=== PATIENT | male | born 1970 | race Two or more races ===

== ENCOUNTER 2020-04-16 13:50 | Outpatient (REF) | payer OTHER, SELFPAY ==
[2020-04-16 14:41] LABS: MANUAL DIFF FLAG NO
[2020-04-16 14:49] LABS: Basophils Percent Auto 0.7 % (0-2); Eosinophils Absolute Auto 0.2 X10*3/uL (0.0-0.4); Eosinophils Percent Auto 5.3 % (0-4); Hematocrit 40.2 % (42-52); Hemoglobin 13.3 g/dl (14.0-18.0); Imm Gran Abs Auto 0.01 X10*3/uL (0.00-0.03); Imm Gran Pct Auto 0.2 % (0.0-0.4); Lymphocytes Absolute Auto 1.6 X10*3/uL (1.2-4.9); Lymphocytes Percent Auto 35.6 % (20-40); Mean Corpuscular HGB Conc 33.1 g/dl (31.0-36.0); Mean Corpuscular Hemoglobin 26.9 pg (27.0-33.0); Mean Corpuscular Volume 81.4 fL (80-98); Mean Platelet Volume 10.2 fL (9.4-12.4); Monocytes Absolute Auto 0.5 X10*3/uL (0.1-1.2); Neutrophils Absolute Auto 2.2 X10*3/uL (2.0-8.3); Neutrophils Percent Auto 47.2 % (45-73); Platelet Count 251 X10*3/uL (160-400); Red Blood Count 4.94 X10*6/uL (4.60-5.80); Red Cell Distribution Width 12.9 % (11.0-16.0); White Blood Count 4.6 X10*3/uL (4.8-10.8)
[2020-04-16 15:12] LABS: Alanine Aminotransferase 22 U/L (0-40); Albumin Level 4.5 g/dL (3.5-5.0); Alkaline Phosphatase 72 U/L (39-117); Anion Gap 16 (12-20); Aspartate Amino Transferase 22 U/L (5-37); Bilirubin Total 0.7 mg/dL (0.0-1.0); Blood Urea Nitrogen 17 mg/dL (9-16); Calcium 9.2 mg/dL (8.4-10.2); Carbon Dioxide 24 mmol/L (22-29); Chloride 104 mmol/L (96-108); Cholesterol 164 mg/dL; Estimated Glomerular Filt Rate > 60; Glucose Fasting 77 mg/dL (60-99); HDL Cholesterol 32 mg/dL; LDL Cholesterol Calculated 116 mg/dl; Potassium 4.6 mmol/l (3.3-5.1); Sodium 139 mmol/L (135-145); Total Protein 7.3 g/dL (6.5-8.0); Triglycerides 83 mg/dL
[2020-04-16 15:32] LABS: TSH reflex Free T4 2.18 mIU/mL (0.32-4.0)
== END 2020-04-16 13:51 | disposition home or self-care (01) ==
LOC: HO.LAB 13:50
PROVIDERS: PCP Internal Medicine; Visit Provider Internal Medicine
DX: E78.00 Pure hypercholesterolemia, unspecified (principal); I10 Essential (primary) hypertension; E66.9 Obesity, unspecified
CPT/HCPCS: 36415; 80053; 80061; 84443; 85025

== ENCOUNTER → 2021-07-10 12:50 | Outpatient (REF) | payer OTHER, SELFPAY ==
--- NOTE | 2021-07-10 12:54 | CA_ITS ---
Transthoracic Echocardiogram Patient (Last, First, Middle): Fly Sanchez, Gender: Male Date of : 1970 Age: 51 Procedure Date: 07/10/2021 Procedure Type: Transthoracic Echocardiogram Location: OP Height: 170.18 cm Weight: 94.8 kg BSA: 2.06 m2 Heart Rate: bpm BP: 130 / 80 mmHg Window Repairer: YR/TO Referring MD: Mumtaz Reyes MD Slurry Control Tender: Tenzin Stephens MD Symptoms: R01.1 - Cardiac murmur, unspecified Study Quality: Fair ECG Rhythm: Sinus Conclusions: - Essentially normal study Findings Left Ventricle Normal left ventricular size, thickness, and systolic function. The visually estimated ejection fraction is between 55-60%. Spectral Doppler is indicative of a normal filling pattern. Right Ventricle Normal right ventricular cavity size and systolic function. Atria Both atria are normal in size. Interatrial shunt cannot be excluded. Aortic Valve Normal aortic valve structure and function. There is no aortic valve stenosis. There is no aortic valve regurgitation. Mitral Valve Normal mitral valve structure and function. There is trace mitral valve regurgitation. There is no mitral valve stenosis. Pulmonic Valve The pulmonic valve was not well visualized. Tricuspid Valve Likely normal tricuspid valve structure and function. There is trace tricuspid valve regurgitation. The right ventricular systolic pressure is normal. The right ventricular systolic pressure is 24 mmHg. There is no evidence of pulmonary hypertension. Great Vessels All visible segments of the aorta are normal in size. The pulmonary artery was not well visualized. Venous The inferior vena cava is normal in size and collapses greater than 50% with inspiration. Pericardium/Pleural There is no evidence of pericardial effusion. Measurements 2D Linear Measurements IVSd: 0.98 0.6-0.9/0.6-1.0 cm LVIDd: 4.89 3.9-5.3/4.2-5.9 cm LVIDd Index: 2.37 2.4-3.2/2.2-3.1 cm/m2 LVIDs: 3.27 2.0-3.6 cm LVPWd: 0.94 0.7-1.1 cm LA Diam: 3.90 2.7-3.8/3.0-4.0 cm LAIDs Index: 1.89 1.5-2.3 cm/m2 LV Mass: 205.98 67-162/88-224 g LV Mass Index: 99.99 43-95/49-115 g/m2 LVOT Diam: 2.20 3.0+(-)1.3 cm 2D Systolic Function EF 4C: 57.50 >55% EF 2C: 62.40 >55% EF BiP: 59.10 >55% Mitral Valve MV Pk E: 0.64 MV PK A: 0.53 MV Decel Time: 159.00 E/A: 1.20 E'Lateral: 8.05 E'Medial: 6.53 E/E' Med: 9.80 E/E' Lat: 7.90 PHT: 47.00 MVA PHT: 4.68 Decel Hamilton: 4.02 Aortic Valve AoV Pk Fabricio: 1.52 AoV Mn Fabricio: 1.02 AoV VTI: 0.30 AoV Pk Grad: 9.00 Aov Mn Grad: 5.00 ARMANDO Cont.VTI: 2.59 LVOT LVOT Pk Fabricio: 0.95 LVOT Mn Fabricio: 0.65 LVOT VTI: 0.20 LVOT Pk Grad: 4.00 LVOT Mn Grad: 2.00 LVOT Diam: 2.20 LVOT Area: 3.80 Diastolic Function MV Pk E: 0.64 MV Pk A: 0.53 E/A: 1.20 E'Medial: 6.53 E/E' Med: 9.80 E' Laterial: 8.05 E/E' Lat: 7.90 Right Ventricle TAPSE (mm): 26.70 TVS' Fabricio: 12.40 Tricuspid Valve TR Pk Fabricio: 2.30 TR Pk Grad: 21.00 RA Press: 3.00 RVSP: 24.00 Great Vessels Aorta Sinus of Valsalva: 3.32 2.0-3.[address] [place]: 2.35 1.7-3.4 cm Ao Asc: 3.60 2.1-3.4 cm Updated in Other Vendor System with Status of Final Tenzin Stephens MD electronically signed on 07/10/2021 3:43:34 PM with status of Final
[2021-07-10 13:06] LABS: MANUAL DIFF FLAG NO
[2021-07-10 13:24] LABS: Basophils Absolute Auto 0.1 X10*3/uL (0.0-0.2); Basophils Percent Auto 1.1 % (0-2); Eosinophils Absolute Auto 0.8 X10*3/uL (0.0-0.4); Eosinophils Percent Auto 13.8 % (0-4); Hematocrit 43.2 % (42.0-52.0); Imm Gran Abs Auto 0.01 X10*3/uL (0.00-0.03); Imm Gran Pct Auto 0.2 % (0.0-0.4); Lymphocytes Absolute Auto 1.6 X10*3/uL (1.2-4.9); Lymphocytes Percent Auto 27.7 % (20-40); Mean Corpuscular HGB Conc 32.4 g/dl (31.0-36.0); Mean Corpuscular Volume 83.4 fL (80.0-98.0); Mean Platelet Volume 9.4 fL (9.4-12.4); Monocytes Absolute Auto 0.5 X10*3/uL (0.1-1.2); Neutrophils Absolute Auto 2.7 x10*3/uL (2.0-8.3); Neutrophils Percent Auto 48.2 % (45-73); Platelet Count 274 X10*3/uL (160-400); Red Blood Count 5.18 X10*6/uL (4.60-5.80); Red Cell Distribution Width 13.7 % (11.0-16.0); White Blood Count 5.7 X10*3/uL (4.8-10.8)
[2021-07-10 13:53] LABS: Appearance Urine CLEAR; Color Urine YELLOW; Glucose Urine UA NEG (NEG); Leukocyte Esterase Urine NEG (NEG); Nitrite Urine NEG (NEG); Specific Gravity - Urine >= 1.030 (1.005-1.025); Urine Blood NEG (NEG); Urine Ketones NEG (NEG); Urine Protein TRACE MG/DL (NEG-TRACE)
[2021-07-10 14:04] LABS: Prostate Specific Antigen 2.58 ng/mL (<0.05-4.0); TSH reflex Free T4 1.91 uIU/mL (0.32-4.0); Vitamin D 25-OH Total 33.9 ng/mL (>30)
[2021-07-10 14:10] LABS: Alanine Aminotransferase 17 U/L (0-40); Albumin Level 4.8 g/dL (3.5-5.0); Alkaline Phosphatase 71 U/L (39-117); Anion Gap 15 (12-20); Aspartate Amino Transferase 19 U/L (5-37); Bilirubin Total 0.9 mg/dL (0.0-1.0); Blood Urea Nitrogen 14 mg/dL (9-16); Calcium 10.3 mg/dL (8.4-10.2); Carbon Dioxide 26 mmol/L (22-29); Chloride 105 mmol/L (96-108); Cholesterol 237 mg/dL; Estimated Glomerular Filt Rate > 60; Glucose Fasting 93 mg/dL (60-99); HDL Cholesterol 49 mg/dL; LDL Cholesterol Calculated 177 mg/dl; Potassium 4.8 mmol/L (3.3-5.1); Sodium 141 mmol/L (135-145); Triglycerides 58 mg/dL
[2021-07-10 14:26] LABS: Uric Acid 8.4 mg/dL (3.4-7.0)
== END ==
LOC: HO.CARD 12:50
PROVIDERS: Visit Provider Internal Medicine
DX: Z00.00 Encounter for general adult medical examination without abnormal findings (principal); R01.1 Cardiac murmur, unspecified; N40.0 Benign prostatic hyperplasia without lower urinary tract symptoms; E78.00 Pure hypercholesterolemia, unspecified; M10.9 Gout, unspecified; E55.9 Vitamin D deficiency, unspecified; R30.0 Dysuria
CPT/HCPCS: 36415; 80053; 80061; 81003; 82306; 84153; 84443; 84550; 85025; 93306

== ENCOUNTER 2022-06-15 10:55 | Outpatient (REF) | payer OTHER, SELFPAY ==
[2022-06-15 11:23] LABS: MANUAL DIFF FLAG NO
[2022-06-15 12:11] LABS: Basophils Percent Auto 0.6 % (0-2); Eosinophils Absolute Auto 0.2 X10*3/uL (0.0-0.4); Eosinophils Percent Auto 2.5 % (0-4); Hematocrit 41.1 % (42.0-52.0); Hemoglobin 13.2 g/dl (14.0-18.0); Imm Gran Abs Auto 0.01 X10*3/uL (0.00-0.03); Imm Gran Pct Auto 0.1 % (0.0-0.4); Lymphocytes Absolute Auto 1.3 X10*3/uL (1.2-4.9); Lymphocytes Percent Auto 19.5 % (20-40); Mean Corpuscular HGB Conc 32.1 g/dl (31.0-36.0); Mean Corpuscular Hemoglobin 26.8 pg (27.0-33.0); Mean Corpuscular Volume 83.4 fL (80.0-98.0); Mean Platelet Volume 9.1 fL (9.4-12.4); Monocytes Absolute Auto 0.5 X10*3/uL (0.1-1.2); Monocytes Percent Auto 7.2 % (2-11); Neutrophils Absolute Auto 4.7 x10*3/uL (2.0-8.3); Neutrophils Percent Auto 70.1 % (45-73); Platelet Count 313 X10*3/uL (160-400); Red Blood Count 4.93 X10*6/uL (4.60-5.80); Red Cell Distribution Width 13.2 % (11.0-16.0); White Blood Count 6.8 X10*3/uL (4.8-10.8)
[2022-06-15 12:23] LABS: Appearance Urine Clear; Color Urine Yellow; Glucose Urine UA Negative (Negative); Leukocyte Esterase Urine Negative (Negative); Nitrite Urine Negative (Negative); PH 5.5 (5.0-9.0); Urine Blood Negative (Negative); Urine Ketones Negative (Negative); Urine Protein Negative (Neg-Trace)
[2022-06-15 13:08] LABS: Alanine Aminotransferase 16 U/L (0-40); Albumin Level 4.6 g/dL (3.5-5.0); Alkaline Phosphatase 83 U/L (39-117); Anion Gap 13 (12-20); Aspartate Amino Transferase 18 U/L (5-37); Bilirubin Total 0.5 mg/dL (0.0-1.0); Blood Urea Nitrogen 17 mg/dL (9-16); Calcium 9.9 mg/dL (8.4-10.2); Carbon Dioxide 29 mmol/L (22-29); Chloride 105 mmol/L (96-108); Cholesterol 186 mg/dL; Estimated Glomerular Filt Rate > 60; Glucose Fasting 84 mg/dL (60-99); HDL Cholesterol 38 mg/dL; LDL Cholesterol Calculated 138 mg/dl; Potassium 5.5 mmol/L (3.3-5.1); Sodium 141 mmol/L (135-145); Total Protein 7.6 g/dL (6.5-8.0); Triglycerides 52 mg/dL
[2022-06-15 13:13] LABS: TSH reflex Free T4 1.43 uIU/mL (0.32-4.0); Vitamin D 25-OH Total 40.9 ng/mL (>30)
== END 2022-06-15 10:56 | disposition home or self-care (01) ==
LOC: HO.LAB 10:55
PROVIDERS: PCP Internal Medicine; Visit Provider Internal Medicine
DX: E78.00 Pure hypercholesterolemia, unspecified (principal); R30.0 Dysuria; E55.9 Vitamin D deficiency, unspecified; I10 Essential (primary) hypertension
CPT/HCPCS: 36415; 80053; 80061; 81003; 82306; 84443; 85025

== ENCOUNTER 2022-11-27 14:08 | Outpatient (AMB) | payer OTHER, SELFPAY ==
[2022-11-27 14:10] VITALS: BP 114/72; PULSE 64; O2SAT 98; BMI 30.4
--- NOTE | 2022-11-27 14:10 | A.OFFPC_ITS ---
Vital Signs 11/27/22 14:10 Height 5 ft 7 in Weight 194 lb 6 oz BMI 30.4 BP 114/72 Blood Pressure Location Lt brachial Position Sitting Pulse 64 Pulse Source Pulse Oximeter Pulse Oximetry (%) 98 Oxygen Delivery Method Room Air Intake Visit Reasons: hyperlipidemia, gout, anxiety Activities Specialist Required: No Accompanied by: Self / Same As Patient Allergies No Known Allergies Allergy (Verified 11/27/22 14:44) Medication List - Last Reconciled 11/27/22 by Mumtaz Reyes MD allopurinol 100 mg PO DAILY colchicine (gout) 0.6 mg PO BID PRN 30 days hydroxyzine HCl 50 mg PO BEDTIME ibuprofen 600 mg PO TID PRN 30 days indomethacin 25 mg PO TID PRN lorazepam 1 mg PO TID PRN 30 days pravastatin 40 mg PO BEDTIME 30 days tramadol 50 mg PO TID PRN 30 days Tobacco use date assessed: 11/27/22 Dental Screening Dental Screen Date: 11/27/22 Did you have a dental visit in the last 12 months?: No Did you have a dental problem in the last 6 months where you did not have access to dental care?: No Was dental information given to patient?: No HPI hyperlipidemia, gout, anxiety HPI Details Patient comes in today for his follow up visit States that he feels okay He denies any headaches or dizziness Denies any chest pains, no SOB No nausea/vomiting, no abdominal pain No change in bowel habits noted States that his low back pain remains adequately controlled on his current Rx Needs his Allopurinol Rx refilled Was not able to get his follow up labs done yet - states that he will try to get them done [facility] Medical History Anxiety Essential hypertension Gout Insomnia Low back pain Obesity (BMI 30-39.9) Pure hypercholesterolemia Surgical History Hx laparoscopic cholecystectomy (~11/06/18) Hx of umbilical hernia repair (~11/06/18) Family History Father Hypertension Cardiovascular disease Mother Cancer Sister Asthma Social History Housing: House Alcohol intake: current Alcohol intake frequency: holidays/special occasions only Patient Tobacco Use Status: Never used Tobacco e-Cigarette/Vaping Use: Never Used Second Hand Smoke Exposure: Yes service: No Current occupational status: disabled Cognitive needs: No Hearing needs: No Vision needs: No Questionnaire PHQ-9 Over the last 2 weeks, how often have you been bothered by any of the following problems? 1. Little interest or pleasure in doing things: not at all 2. Feeling down, depressed, or hopeless: not at all 3. Trouble falling or staying asleep, or sleeping too much: not at all 4. Feeling tired or having little energy: not at all 5. Poor appetite or overeating: not at all 6. Feeling bad about yourself - or that you are a failure or have let yourself or your family down: not at all 7. Trouble concentrating on things, such as reading the newspaper or watching television: not at all 8. Moving or speaking so slowly that other people could have noticed. Or the opposite - being so fidgety or restless that you have been moving around a lot more than usual: not at all 9. Thoughts that you would be better off or of hurting yourself in some way: not at all Total score: 0 Depression Screening Interpretation: Negative [id number] - PHQ-9 Billing: Yes Source: Developed by Drs. Maikel Xie, Nurys Benavides, Claudy Sawyer and colleagues, with an educational sawyer from [employer] Thrive Questionnaire Date Thrive assessed: 11/27/22 I am a: Patient What is your living situation today?: I have a steady place to live Within the past 12 months, did the food you bought not last and you didn't have the money to get more?: Never true Within the past 12 months, did you worry whether your food would run out before you got money to buy more?: Never true Do you have trouble paying for medicines?: No Do you have trouble getting transportation to medical appointments?: No Do you have trouble paying your heating and electricity bill?: No Do you have trouble taking care of your child, family member or friend?: No Do you have trouble with day-to-day activities such as bathing, preparing meals, shopping, managing finances, etc.?: No Are you currently unemployed and looking for a job?: No Are you interested in more education?: No Please select the resources that you would like help with: None Currently or been in a relationship where the following occur: no concerns reported AUDIT C Alcohol Use Questionnaire (AUDIT-C) 1. How often do you have a drink containing alcohol?: Monthly or less 2. How many drinks containing alcohol do you have on a typical day when you are drinking?: 1 or 2 3. How often do you have six or more drinks on one occasion?: Never Total Score: 1 Score Reviewed/Action Taken: Yes CIERA-7 AMB Questionnaire CIERA-7 Date CIERA - 7 assessed: 11/27/22 Feeling nervous, anxious, or on edge: 0 = Not at all Not being able to stop or control worryin = Not at all Worrying too much about different things: 0 = Not at all Trouble relaxin = Not at all Being so restless that it is hard to sit still: 0 = Not at all Becoming easily annoyed or irritable: 0 = Not at all Feeling afraid as if something awful might happen: 0 = Not at all Total CIERA-7 score (0-4 normal; 5-9 mild; 10-14 moderate; 15-21 severe): 0 Source: Developed by Drs. Maikel Xie, Nurys Benavides, Claudy Sawyer and colleagues, with an educational sawyer from [employer] Review of Systems Const Denies chills, Denies fatigue, Denies fever(s) and Denies headache(s) ENT Denies dysphagia, Denies dizziness, Denies otalgia, Denies headache(s), Reports neck pain, Denies odynophagia and Denies sore throat Card Denies chest pain, Denies palpitations and Denies dyspnea Resp Denies cough, Denies dyspnea and Denies wheezing GI Denies abdominal pain, Denies constipation, Denies dysphagia, Denies heartburn, Denies diarrhea, Denies nausea, Denies odynophagia and Denies vomiting Musc Reports back pain (recurrent), Denies arthralgias and Reports neck pain Neuro Denies dizziness and Denies headache(s) Psych Reports anxiety Endo Denies fatigue and Denies palpitations Aller/Immun Denies wheezing Physical exam (Primary Care) Vital Signs: Last Vital Signs Pulse 64 11/27/22 14:10 BP 114/72 11/27/22 14:10 Pulse Ox 98 11/27/22 14:10 Oxygen Delivery Method Room Air 11/27/22 14:10 BMI result Body Mass Index 30.4 Tobacco/Smoking Status: Tobacco use Status Tobacco use date assessed 11/27/22 11/27/22 14:17 Patient Tobacco Use Status Never used Tobacco 11/27/22 14:17 e-Cigarette/Vaping Use Never Used 11/27/22 14:17 PHQ-9: PHQ-9 Score PHQ-9: Total score 0 11/27/22 14:49 Depression Screening Interpretation: Negative Thrive Assessment: Date of Thrive Assessment Date Thrive assessed 11/27/22 11/27/22 14:17 Currently or been in a relationship where the following occur: no concerns reported Const General: no acute distress and alert HENMT Ears: TM's normal bilaterally and EAC's normal Throat: Yes posterior oropharynx normal and Yes tonsils normal Neck Neck: Yes no lymphadenopathy and Yes supple Thyroid: Thyroid normal and no masses Resp Auscultation: clear to auscultation bilaterally, no rales and no wheezes Cardio Rate: regular rate Rhythm: regular rhythm Heart sounds: no murmurs GI Palpation (GI): Soft to palpation, nontender and no guarding Auscultation: normal bowel sounds Back/Spine/Pelvis Cervical Spine: Cervical spine tenderness Thoracic/Lumbar Spine: lumbar spinal tenderness Extrem General: Yes no clubbing, cyanosis or edema Assessment and Plan Assessment & Plan (1) Pure hypercholesterolemia: Code(s): E78.00 - Pure hypercholesterolemia, unspecified Plan: Was not able to get his follow up labs done prior to his visit today As we have just switched him over from Atorvastatin to Pravastatin a few months ago due to myalgias on Atorvastatin, have advised patient that he should try to get his follow up labs done [facility] Reinforced low cholesterol diet Continue Pravastatin 40 mg QD for now - appears to be tolerating Pravastatin with no issues Will recheck his fasting lipids and labs again in 4 months for follow up (2) Essential hypertension: Code(s): I10 - Essential (primary) hypertension Plan: Reinforced low-sodium diet -? goal is systolic BP of at least 130 mm or less He has not yet required any antihypertensives for his blood pressure so far (3) Gout: Code(s): M10.9 - Gout, unspecified Qualifiers: Chronicity: unspecified Gout etiology: idiopathic Gout site: unspecified site Qualified Code(s): M10.00 - Idiopathic gout, unspecified site Plan: Reinforced low purine diet; serum uric acid was elevated at 8.4 on his labs back in June 2021 Gout was controlled adequately with diet modification alone until he had a gout flare up a few months ago (after no flare ups in over a year) We tried starting him on Colchicine 0.6 mg BID at his last appt but insurance would not cover the Rx and he was instead started on Allopurinol 100 mg QD Will recheck his serum uric acid level in 4 months for follow up (4) Low back pain: Code(s): M54.5 - Low back pain Qualifiers: Back pain laterality: midline Chronicity: unspecified Sciatica presence: without sciatica Qualified Code(s): M54.5 - Low back pain Plan: Reinforced activity and weight lifting restrictions Continue Tramadol 50 mg 2 to 3 times a day as needed Lumbar spine and cervical spine x-rays done a couple of years ago came back no rmal Will consider referral to pain management for further evaluation if his low back pain and neck pain continue to persist or worsen (5) Benign prostatic hyperplasia (BPH) with urinary urgency: Code(s): N40.1 - Benign prostatic hyperplasia with lower urinary tract symptoms; R39.15 - Urgency of urination Plan: PSA back in June 2021 was normal Follow up with urology as scheduled (6) Insomnia: Code(s): G47.00 - Insomnia, unspecified Qualifiers: Insomnia type: unspecified Qualified Code(s): G47.00 - Insomnia, unspecified Plan: Sleep hygiene reinforced Continue Hydroxyzine 50 mg once a day at bedtime as needed (7) Anxiety: Code(s): F41.9 - Anxiety disorder, unspecified Plan: Continue Lorazepam 1 mg to 3 times a day as needed (8) Obesity (BMI 30-39.9): Code(s): E66.9 - Obesity, unspecified Plan: Reinforced diet/exercise as tolerated/lose weight Plan Follow up in 4 months Orders: Orders Lipid Panel 4 Months E78.00 - Pure hypercholesterolemia, unspecified Comprehensive [place]. Panel Fast 4 Months E78.00 - Pure hypercholesterolemia, unspecified TSH reflex Free T4 4 Months E78.00 - Pure hypercholesterolemia, unspecified Uric Acid 4 Months M10.9 - Gout, unspecified Vitamin D 25-OH Total 4 Months E55.9 - Vitamin D deficiency, unspecified Complete Blood Count Auto Diff 4 Months I10 - Essential (primary) hypertension UA CC w/rflx Micro + Cult 4 Months R30.0 - Dysuria Medications: Refilled allopurinol 100 mg PO DAILY 30 tabs 2RF Review Patient declined Colonoscopy: 07/27/22 Patient declined Colon Cancer Screen Lab: 07/27/22 Coding Level of Care Code Est Pt Level 4 (78284) Diagnoses Pure hypercholesterolemia E78.00 Essential hypertension I10 Gout M10.00 Chronicity: unspecified Gout etiology: idiopathic Gout site: unspecified site Low back pain M54.5 Back pain laterality: midline Chronicity: unspecified Sciatica presence: without sciatica Benign prostatic hyperplasia (BPH) with urinary urgency N40.1; R39.15 Insomnia G47.00 Insomnia type: unspecified Anxiety F41.9 Obesity (BMI 30-39.9) E66.9
== END 2022-11-27 14:51 | disposition home or self-care (01) ==
PROVIDERS: PCP Internal Medicine; Visit Provider Internal Medicine
DX: I10 Essential (primary) hypertension (principal); F41.9 Anxiety disorder, unspecified; E78.00 Pure hypercholesterolemia, unspecified; M10.00 Idiopathic gout, unspecified site; M54.50 Low back pain, unspecified; N40.1 Benign prostatic hyperplasia with lower urinary tract symptoms; R39.15 Urgency of urination; G47.00 Insomnia, unspecified; E66.9 Obesity, unspecified
CPT/HCPCS: 99214

== ENCOUNTER 2023-06-28 12:43 | Outpatient (AMB) | payer OTHER, SELFPAY ==
--- NOTE | 2023-06-28 12:50 | MHC.PC.OV ---
Vital Signs 06/28/23 12:53 Height 5 ft 7 in Weight 212 lb 4 oz BMI 33.2 BP 100/60 Blood Pressure Location Lt brachial Position Sitting Pulse 54 Pulse Source Pulse Oximeter Pulse Oximetry (%) 97 Oxygen Delivery Method Room Air Intake Visit Reasons: OVERDUE 4 MON FUP Intake Note: Patient is here to follow up on BPH, Tourette's syndrome, HTN, Hypercholesterolemia. Engine Setter Required: No Field Return Repairer: Not Required per policy Accompanied by: Self / Same As Patient Allergies No Known Allergies Allergy (Verified 06/28/23 14:14) Medication List - Last Reconciled 06/28/23 by Mumtaz Reyes MD allopurinol 100 mg PO DAILY colchicine 0.6 mg PO BID PRN 30 days hydroxyzine HCl 50 mg PO BEDTIME ibuprofen 600 mg PO TID PRN 30 days indomethacin 25 mg PO TID PRN lorazepam 1 mg PO TID PRN 30 days pravastatin 40 mg PO BEDTIME tramadol 50 mg PO TID PRN 30 days Tobacco use date assessed: 06/28/23 Dental Screening Dental Screen Date: 06/28/23 Did you have a dental visit in the last 12 months?: No Did you have a dental problem in the last 6 months where you did not have access to dental care?: No Was dental information given to patient?: No HPI OVERDUE 4 MON FUP HPI Details Patient comes in today for his follow up visit - was last seen in November 2022 Patient states that he has been working out regularly and some of his weight gain since his last visit may be due to muscle mass States that he currently feels okay and that his chronic low back pain remains adequately controlled on his current Rx Adds that his anxiety is also controlled on his current Rx He denies any headaches or dizziness Denies any chest pains, no SOB No nausea/vomiting, no abdominal pain No change in bowel habits noted Needs his Ibuprofen Rx refilled He has not yet been able to get his previously ordered follow up labs done [facility] Medical History Obesity (BMI 30-39.9) Anxiety Insomnia Gout Low back pain Essential hypertension Pure hypercholesterolemia Surgical History Hx of umbilical hernia repair (~11/06/18) Hx laparoscopic cholecystectomy (~11/06/18) Family History Father Hypertension Cardiovascular disease Mother Cancer Sister Asthma Social History Housing: House Alcohol intake: current Alcohol intake frequency: holidays/special occasions only Patient Tobacco Use Status: Never used Tobacco e-Cigarette/Vaping Use: Never Used Second Hand Smoke Exposure: Yes service: No Current occupational status: disabled Cognitive needs: No Hearing needs: No Vision needs: No Questionnaire PHQ-9 Over the last 2 weeks, how often have you been bothered by any of the following problems? 1. Little interest or pleasure in doing things: not at all 2. Feeling down, depressed, or hopeless: not at all 3. Trouble falling or staying asleep, or sleeping too much: not at all 4. Feeling tired or having little energy: not at all 5. Poor appetite or overeating: not at all 6. Feeling bad about yourself - or that you are a failure or have let yourself or your family down: not at all 7. Trouble concentrating on things, such as reading the newspaper or watching television: not at all 8. Moving or speaking so slowly that other people could have noticed. Or the opposite - being so fidgety or restless that you have been moving around a lot more than usual: not at all 9. Thoughts that you would be better off or of hurting yourself in some way: not at all Total score: 0 Depression Screening Interpretation: Negative Depression Screening Done: Yes 89837 - PHQ-9 Billing: Yes Source: Developed by Drs. Maikel Xie, Nurys Benavides, Claudy Sawyer and colleagues, with an educational sawyer from [employer]. Thrive Questionnaire Date Thrive assessed: 06/28/23 I am a: Patient What is your living situation today?: I have a steady place to live Within the past 12 months, did the food you bought not last and you didn't have the money to get more?: Never true Within the past 12 months, did you worry whether your food would run out before you got money to buy more?: Never true Do you have trouble paying for medicines?: No Do you have trouble getting transportation to medical appointments?: No Do you have trouble paying your heating and electricity bill?: No Do you have trouble taking care of your child, family member or friend?: No Do you have trouble with day-to-day activities such as bathing, preparing meals, shopping, managing finances, etc.?: No Are you currently unemployed and looking for a job?: No Are you interested in more education?: No Currently or been in a relationship where the following occur: no concerns reported THRIVE Score: 0 AUDIT C Alcohol Use Questionnaire (AUDIT-C) 1. How often do you have a drink containing alcohol?: Monthly or less 2. How many drinks containing alcohol do you have on a typical day when you are drinking?: 1 or 2 Total Score: 1 Score Reviewed/Action Taken: Yes CIERA-7 AMB Questionnaire CIERA-7 Date CIERA - 7 assessed: 06/28/23 Feeling nervous, anxious, or on edge: 0 = Not at all Not being able to stop or control worryin = Not at all Worrying too much about different things: 0 = Not at all Trouble relaxin = Not at all Being so restless that it is hard to sit still: 0 = Not at all Becoming easily annoyed or irritable: 0 = Not at all Feeling afraid as if something awful might happen: 0 = Not at all Total CIERA-7 score (0-4 normal; 5-9 mild; 10-14 moderate; 15-21 severe): 0 Source: Developed by Drs. Maikel Xie, Nurys Benavides, Claudy Sawyer and colleagues, with an educational sawyer from [employer]. Review of Systems Const Denies chills, Denies fatigue, Denies fever(s) and Denies headache(s) ENT Denies dysphagia, Denies dizziness, Denies otalgia, Denies headache(s), Reports neck pain, Denies odynophagia and Denies sore throat Card Denies chest pain, Denies palpitations and Denies dyspnea Resp Denies cough, Denies dyspnea and Denies wheezing GI Denies abdominal pain, Denies constipation, Denies dysphagia, Denies heartburn, Denies diarrhea, Denies nausea, Denies odynophagia and Denies vomiting Denies difficulty urinating, Denies dysuria and Denies urinary frequency Musc Reports back pain (recurrent), Denies arthralgias and Reports neck pain Skin/Breast Denies rash Neuro Denies dizziness and Denies headache(s) Psych Reports anxiety Endo Denies fatigue and Denies palpitations Aller/Immun Denies wheezing Physical exam (Primary Care) Vital Signs: Last Vital Signs Pulse 54 06/28/23 12:53 BP 100/60 06/28/23 12:53 Pulse Ox 97 06/28/23 12:53 Oxygen Delivery Method Room Air 06/28/23 12:53 BMI result Body Mass Index 33.2 Tobacco/Smoking Status: Tobacco use Status Tobacco use date assessed 06/28/23 06/28/23 12:53 Patient Tobacco Use Status Never used Tobacco 06/28/23 12:53 e-Cigarette/Vaping Use Never Used 06/28/23 12:53 PHQ-9: PHQ-9 Score PHQ-9: Total score 0 06/28/23 14:17 Depression Screening Interpretation: Negative Thrive Assessment: Date of Thrive Assessment Date Thrive assessed 06/28/23 06/28/23 12:53 Currently or been in a relationship where the following occur: no concerns reported Const General: no acute distress and alert HENMT Ears: TM's normal bilaterally and EAC's normal Throat: Yes posterior oropharynx normal and Yes tonsils normal Neck Neck: Yes no lymphadenopathy and Yes supple Thyroid: Thyroid normal and no masses Resp Auscultation: clear to auscultation bilaterally, no rales and no wheezes Cardio Rate: regular rate Rhythm: regular rhythm Heart sounds: no murmurs GI Palpation (GI): Soft to palpation and nontender Auscultation: normal bowel sounds General: Yes no CVA tenderness Back/Spine/Pelvis Back: no CVA tenderness Cervical Spine: Cervical spine tenderness Thoracic/Lumbar Spine: lumbar spinal tenderness Skin Rashes: no rashes Extrem General: Yes no clubbing, cyanosis or edema Assessment and Plan Assessment & Plan (1) Pure hypercholesterolemia: Code(s): E78.00 - Pure hypercholesterolemia, unspecified Plan: Patient was not able to get his follow up labs done prior to his visit today As we have just switched him over from Atorvastatin to Pravastatin a few months ago due to increased myalgia on Atorvastatin, have advised patient that he should try to get his follow up labs done FRANKY Reinforced low cholesterol diet Continue Pravastatin 40 mg QD for now - appears to be tolerating Pravastatin with no issues Will recheck his fasting lipids and labs again in 4 months for follow up (2) Essential hypertension: Code(s): I10 - Essential (primary) hypertension Plan: Reinforced low-sodium diet -? goal is systolic BP of at least 130 mm or less He has not yet required any antihypertensives for his blood pressure so far and it appears that his previous high blood pressure readings may be situational or due to other causes and not from actual hypertension (3) Gout: Code(s): M10.9 - Gout, unspecified Qualifiers: Chronicity: unspecified Gout etiology: idiopathic Gout site: unspecified site Qualified Code(s): M10.00 - Idiopathic gout, unspecified site Plan: Reinforced low purine diet; his serum uric acid was elevated at 8.4 when they were last checked back in June 2021 His gout has been controlled adequately with diet modification alone until he had a gout flare up early last year (after no flare ups in over a year) We tried starting him on Colchicine 0.6 mg BID but insurance would not cover the Rx and he was instead started on Allopurinol 100 mg QD Will recheck his serum uric acid level FRANKY for follow up (4) Low back pain: Code(s): M54.5 - Low back pain Qualifiers: Back pain laterality: midline Chronicity: unspecified Sciatica presence: without sciatica Qualified Code(s): M54.5 - Low back pain Plan: Reinforced activity and weight lifting restrictions Continue Tramadol 50 mg 2 to 3 times a day as needed and Ibuprofen 600 mg TID with food PRN (Rx refilled) Lumbar spine and cervical spine x-rays done a couple of years ago came back normal Will consider referral to pain management for further evaluation if his low back pain and neck pain continue to persist or worsen (5) Benign prostatic hyperplasia (BPH) with urinary urgency: Code(s): N40.1 - Benign prostatic hyperplasia with lower urinary tract symptoms; R39.15 - Urgency of urination Plan: His PSA when last checked in June 2021 was normal Follow up with urology as scheduled (6) Insomnia: Code(s): G47.00 - Insomnia, unspecified Qualifiers: Insomnia type: unspecified Qualified Code(s): G47.00 - Insomnia, unspecified Plan: Sleep hygiene reinforced Continue Hydroxyzine 50 mg once a day at bedtime as needed (7) Anxiety: Code(s): F41.9 - Anxiety disorder, unspecified Plan: Continue Lorazepam 1 mg to 3 times a day as needed (8) Obesity (BMI 30-39.9): Code(s): E66.9 - Obesity, unspecified Plan: Reinforced diet/exercise as tolerated/lose weight Plan Follow up in 4 months Orders: Orders Lipid Panel 4 Months E78.00 - Pure hypercholesterolemia, unspecified Comprehensive [place]. Panel Fast 4 Months E78.00 - Pure hypercholesterolemia, unspecified Medications: Refilled ibuprofen Take with food 600 mg PO TID 30 days PRN 90 tabs 2RF joint pain Coding Level of Care Code Est Pt Level 4 (02234) Diagnoses Pure hypercholesterolemia E78.00 Essential hypertension I10 Idiopathic gout, unspecified chronicity, unspecified site M10.00 Chronicity: unspecified Gout etiology: idiopathic Gout site: unspecified site Midline low back pain without sciatica, unspecified chronicity M54.5 Back pain laterality: midline Chronicity: unspecified Sciatica presence: without sciatica Benign prostatic hyperplasia (BPH) with urinary urgency N40.1; R39.15 Insomnia, unspecified type G47.00 Insomnia type: unspecified Anxiety F41.9 Obesity (BMI 30-39.9) E66.9
[2023-06-28 12:53] VITALS: BP 100/60; PULSE 54; O2SAT 97; BMI 33.2
== END 2023-06-28 16:49 | disposition home or self-care (01) ==
PROVIDERS: PCP Internal Medicine; Visit Provider Internal Medicine
DX: E78.00 Pure hypercholesterolemia, unspecified (principal); I10 Essential (primary) hypertension; Z68.41 Body mass index [BMI] 40.0-44.9, adult; E66.9 Obesity, unspecified; M10.00 Idiopathic gout, unspecified site; M54.50 Low back pain, unspecified; N40.1 Benign prostatic hyperplasia with lower urinary tract symptoms; R39.15 Urgency of urination; G47.00 Insomnia, unspecified; F41.9 Anxiety disorder, unspecified
CPT/HCPCS: 99214

== ENCOUNTER 2023-11-01 13:27 | Outpatient (AMB) | payer OTHER, SELFPAY ==
[2023-11-01 13:32] VITALS: BP 130/80; PULSE 79; O2SAT 98; BMI 33.2
--- NOTE | 2023-11-01 13:32 | A.OFFPC_ITS ---
Vital Signs 11/01/23 13:32 Height 5 ft 7 in Weight 212 lb BMI 33.2 BP 130/80 Blood Pressure Location Lt brachial Position Sitting Pulse 79 Pulse Source Pulse Oximeter Pulse Oximetry (%) 98 Oxygen Delivery Method Room Air Intake Visit Reasons: 4mof\u Allergies No Known Allergies Allergy (Verified 11/01/23 13:42) Medication List - Last Reconciled 11/01/23 by Mumtaz Reyes MD allopurinol 100 mg PO DAILY colchicine 0.6 mg PO BID PRN 30 days hydroxyzine HCl 50 mg PO BEDTIME ibuprofen 600 mg PO TID PRN 30 days indomethacin 25 mg PO TID PRN lorazepam 1 mg PO TID PRN 30 days naloxone 4 mg/actuation (Narcan) 4 mg intranasal Q2M PRN pravastatin 40 mg PO BEDTIME tramadol 50 mg PO TID PRN 30 days Tobacco use date assessed: 06/28/23 Dental Screening Dental Screen Date: 06/28/23 HPI 4mof\u HPI Details Patient comes in today for his follow up visit States that his left 4th and 5th fingers have been feeling numb for about 3 to 4 weeks now Notes that he would sometimes be unable to completely flex his 4th and 5th fingers when he is making a fist with his hand He has also noticed some pain over the medial (ulnar) side of his left elbow recently, especially when he leans his elbow against a hard surface, and also some pain radiating up the ulnar side of his left wrist from his hand He denies any recent injury or trauma to his left upper extremity Is concerned that his symptoms may indicate a recent stroke He denies any headaches or dizziness Denies any chest pains, no increased SOB No nausea/vomiting, no abdominal pain No change in bowel habits noted States that his low back pain and joint pains remain adequately controlled on his current Rx Adds that his anxiety is also controlled on his current Rx He was not able to get his follow up labs done prior to his appointment today [facility] Medical History Obesity (BMI 30-39.9) Anxiety Insomnia Gout Low back pain Essential hypertension Pure hypercholesterolemia Surgical History Hx of umbilical hernia repair (~11/06/18) Hx laparoscopic cholecystectomy (~11/06/18) Family History Father Hypertension Cardiovascular disease Mother Cancer Sister Asthma Social History Housing: House Alcohol intake: current Alcohol intake frequency: holidays/special occasions only Patient Tobacco Use Status: Never used Tobacco e-Cigarette/Vaping Use: Never Used Second Hand Smoke Exposure: Yes service: No Current occupational status: disabled Cognitive needs: No Hearing needs: No Vision needs: No Questionnaire PHQ-9 Over the last 2 weeks, how often have you been bothered by any of the following problems? 1. Little interest or pleasure in doing things: not at all 2. Feeling down, depressed, or hopeless: not at all 3. Trouble falling or staying asleep, or sleeping too much: not at all 4. Feeling tired or having little energy: not at all 5. Poor appetite or overeating: not at all 6. Feeling bad about yourself - or that you are a failure or have let yourself or your family down: not at all 7. Trouble concentrating on things, such as reading the newspaper or watching television: not at all 8. Moving or speaking so slowly that other people could have noticed. Or the opposite - being so fidgety or restless that you have been moving around a lot more than usual: not at all 9. Thoughts that you would be better off or of hurting yourself in some way: not at all Total score: 0 Depression Screening Interpretation: Negative Depression Screening Done: Yes 83607 - PHQ-9 Billing: Yes Source: Developed by Drs. Maikel Xie, Nurys Benavides, Claudy Sawyer and colleagues, with an educational sawyer from [employer]. Thrive Questionnaire Date Thrive assessed: 06/28/23 AUDIT C Alcohol Use Questionnaire (AUDIT-C) 1. How often do you have a drink containing alcohol?: Monthly or less 2. How many drinks containing alcohol do you have on a typical day when you are drinking?: 1 or 2 Total Score: 1 Score Reviewed/Action Taken: Yes CIERA-7 AMB Questionnaire CIERA-7 Date CIERA - 7 assessed: 06/28/23 Source: Developed by Drs. Maikel Xie, Nurys Benavides, Claudy Sawyer and colleagues, with an educational sawyer from [employer]. Review of Systems Const Denies chills, Denies fatigue, Denies fever(s) and Denies headache(s) ENT Denies dysphagia, Denies dizziness, Denies otalgia, Denies headache(s), Reports neck pain, Denies odynophagia and Denies sore throat Card Denies chest pain, Denies palpitations and Denies dyspnea Resp Denies cough, Denies dyspnea and Denies wheezing GI Denies abdominal pain, Denies constipation, Denies dysphagia, Denies heartburn, Denies diarrhea, Denies nausea, Denies odynophagia and Denies vomiting Denies difficulty urinating, Denies dysuria and Denies urinary frequency Musc Reports back pain (recurrent), Reports arthralgias (over the medial side of the left elbow and left wrist - see HPI), Denies joint swelling, Reports neck pain and Reports numbness (of the left 4th and 5th fingers - see HPI) Skin/Breast Denies rash Neuro Denies dizziness, Denies headache(s) and Reports numbness (of the left 4th and 5th fingers - see HPI) Psych Reports anxiety Endo Denies fatigue and Denies palpitations Aller/Immun Denies wheezing Physical exam (Primary Care) Vital Signs: Last Vital Signs Pulse 79 11/01/23 13:32 BP 130/80 11/01/23 13:32 Pulse Ox 98 11/01/23 13:32 Oxygen Delivery Method Room Air 11/01/23 13:32 BMI result Body Mass Index 33.2 Tobacco/Smoking Status: Tobacco use Status Tobacco use date assessed 06/28/23 11/01/23 13:37 Patient Tobacco Use Status Never used Tobacco 11/01/23 13:37 e-Cigarette/Vaping Use Never Used 11/01/23 13:37 PHQ-9: PHQ-9 Score PHQ-9: Total score 0 11/01/23 13:37 Depression Screening Interpretation: Negative Thrive Assessment: Date of Thrive Assessment Date Thrive assessed 06/28/23 11/01/23 13:37 Const General: no acute distress and alert HENMT Ears: TM's normal bilaterally and EAC's normal Throat: Yes posterior oropharynx normal and Yes tonsils normal Neck Neck: Yes no lymphadenopathy and Yes supple Thyroid: Thyroid normal and no masses Resp Auscultation: clear to auscultation bilaterally, no rales and no wheezes Cardio Rate: regular rate Rhythm: regular rhythm Heart sounds: no murmurs GI Palpation (GI): Soft to palpation and nontender Auscultation: normal bowel sounds General: Yes no CVA tenderness Back/Spine/Pelvis Back: no CVA tenderness Cervical Spine: Cervical spine tenderness Thoracic/Lumbar Spine: lumbar spinal tenderness Skin Rashes: no rashes Neuro Cognition (Neuro): normal cognition Extrem Other: (+) some weakness on flexion of the left 4th and 5th finger noted General: Yes no clubbing, cyanosis or edema Left upper extremity: elbow/forearm Details: tenderness Location: of the medial epicondyle; no swelling and wrist ((+) mild tenderness over the ulnar side of the L wrist on exam) Assessment and Plan Assessment & Plan (1) Pure hypercholesterolemia: Code(s): E78.00 - Pure hypercholesterolemia, unspecified Plan: Patient was not able to get his follow up labs done prior to his visit today - have advised patient that he should try to get his follow up labs done FRANKY He did have his labs done a day after his last visit in June 2023 at [facility] - his total cholesterol was at 244 mg/dl and LDL cholesterol was at 181 mg/dl, both were significantly elevated and needs to improve Reinforced low cholesterol diet Continue Pravastatin 40 mg QD for now (previous lab orders printed out and handed to patient) - he appears to be tolerating Pravastatin with no issues Will recheck his fasting lipids and labs again in 4 months for follow up (2) Essential hypertension: Code(s): I10 - Essential (primary) hypertension Plan: Reinforced low-sodium diet -? goal is systolic BP of at least 130 mm or less He has not yet required any antihypertensives for his blood pressure so far and it appears that his previous high blood pressure readings may be situational or due to other causes and not from actual hypertension (3) Gout: Code(s): M10.9 - Gout, unspecified Qualifiers: Gout site: unspecified site Gout etiology: idiopathic Chronicity: unspecified Qualified Code(s): M10.00 - Idiopathic gout, unspecified site Plan: Reinforced low purine diet; his serum uric acid was elevated at 8.4 back in June 2021 but appears to have improved to 6.9 on 06/29/2023 His gout has been controlled adequately with diet modification alone until he had a gout flare up early last year (after no flare ups in over a year) We tried starting him on Colchicine 0.6 mg BID but insurance would not cover the Rx and he was instead started on Allopurinol 100 mg QD, which he is still on at present (4) Low back pain: Code(s): M54.5 - Low back pain Qualifiers: Chronicity: unspecified Back pain laterality: midline Sciatica presence: without sciatica Qualified Code(s): M54.5 - Low back pain Plan: Reinforced activity and weight lifting restrictions Continue Tramadol 50 mg 2 to 3 times a day as needed and Ibuprofen 600 mg TID with food PRN (Rx refilled) Lumbar spine and cervical spine x-rays done a couple of years ago came back normal Will consider referral to pain management for further evaluation if his low back pain and neck pain continue to persist or worsen (5) Numbness of fingers: Code(s): R20.0 - Anesthesia of skin Plan: Patient is advised that his current left hand symptoms (numbness and some weakness of the left 4th and 5th fingers) are likely due to some type of neuropathy rather than symptoms of a CVA Will send him for x-rays of the left wrist and left hand for further evaluation Will also send him for EMG and NCV of the left upper extremity for further evaluation (6) Benign prostatic hyperplasia (BPH) with urinary urgency: Code(s): N40.1 - Benign prostatic hyperplasia with lower urinary tract symptoms; R39.15 - Urgency of urination Plan: His PSA when last checked in June 2021 was normal Follow up with urology as scheduled (7) Insomnia: Code(s): G47.00 - Insomnia, unspecified Qualifiers: Insomnia type: unspecified Qualified Code(s): G47.00 - Insomnia, unspecified Plan: Sleep hygiene reinforced Continue Hydroxyzine 50 mg once a day at bedtime as needed (8) Anxiety: Code(s): F41.9 - Anxiety disorder, unspecified Plan: Continue Lorazepam 1 mg to 3 times a day as needed (9) Obesity (BMI 30-39.9): Code(s): E66.9 - Obesity, unspecified Plan: Reinforced diet/exercise as tolerated/lose weight Plan Follow up in 4 months Orders: Orders NE electromyogram (EMG) Today R20.0 - Anesthesia of skin, R20.2 - Paresthesia of skin NE nerve conduction velocity Today R20.0 - Anesthesia of skin, R20.2 - Paresthesia of skin Complete Blood Count Auto Diff 4 Months D64.9 - Anemia, unspecified Lipid Panel 4 Months E78.00 - Pure hypercholesterolemia, unspecified XR hand LT min 3V Today M79.642 - Pain in left hand, R20.0 - Anesthesia of skin XR wrist LT 2V Today M79.642 - Pain in left hand, R20.0 - Anesthesia of skin Comprehensive [place]. Panel Fast 4 Months E78.00 - Pure hypercholesterolemia, unspecified TSH reflex Free T4 4 Months E78.00 - Pure hypercholesterolemia, unspecified Vitamin B12 and Folate 4 Months E53.8 - Deficiency of other specified B group vitamins Coding Level of Care Code Est Pt Level 4 (36708) Diagnoses Pure hypercholesterolemia E78.00 Essential hypertension I10 Idiopathic gout, unspecified chronicity, unspecified site M10.00 Gout site: unspecified site Gout etiology: idiopathic Chronicity: unspecified Midline low back pain without sciatica, unspecified chronicity M54.5 Chronicity: unspecified Back pain laterality: midline Sciatica presence: without sciatica Numbness of fingers R20.0 Benign prostatic hyperplasia (BPH) with urinary urgency N40.1; R39.15 Insomnia, unspecified type G47.00 Insomnia type: unspecified Anxiety F41.9 Obesity (BMI 30-39.9) E66.9
== END 2023-11-01 14:25 | disposition home or self-care (01) ==
PROVIDERS: PCP Internal Medicine; Visit Provider Internal Medicine
DX: E78.00 Pure hypercholesterolemia, unspecified (principal); I10 Essential (primary) hypertension; M10.00 Idiopathic gout, unspecified site; M54.50 Low back pain, unspecified; R20.0 Anesthesia of skin; N40.1 Benign prostatic hyperplasia with lower urinary tract symptoms; R39.15 Urgency of urination; G47.00 Insomnia, unspecified; F41.9 Anxiety disorder, unspecified
CPT/HCPCS: 99214

== ENCOUNTER 2023-12-16 13:13 | Outpatient (REF) | payer OTHER, SELFPAY ==
--- NOTE | 2023-12-16 13:17 | EMG_ITS ---
Chief complaint: About 2 months of numbness on left 4th and 5th digits, weakness especially on left 5th digit, associates it with incident of laying on the floor for quite sometime then waking up with elbow pain Reason for referral: Evaluate for ulnar neuropathy Referred by: Dr. Reyes Procedure done: Left upper extremity NCS/EMG Precautions and/or limitations: None The limb temperature was monitored continuously and remained between 32-36 degrees C during the performance of the NCS. Ulnar motor NCS was performed with moderate elbow flexion between 70-90 degrees, with across-elbow distance of 10 cm. Nerve Conduction Studies Anti Sensory Summary Table ?Stim Site NR Onset (ms) Norm Onset (ms) Peak (ms) Norm Peak (ms) O-P Amp (?V) Norm O-P Amp Site1 Site2 Delta-0 (ms) Dist (cm) Fabricio (m/s) Norm Fabricio (m/s) Left Median Anti Sensory (2nd Digit) Wrist ? 3.0 3.6 <3.6 20.5 >10 Wrist 2nd Digit 3.0 14.0 47 Left Radial Anti Sensory (Thumb) Forearm ? 1.6 2.2 <3.1 27.6 Forearm Thumb 1.6 0.0 Left Ulnar Anti Sensory (5th Digit) Wrist ? 2.5 3.4 <3.7 22.1 >15.0 Wrist 5th Digit 2.5 14.0 56 Motor Summary Table ?Stim Site NR Onset (ms) Norm Onset (ms) O-P Amp (mV) Norm O-P Amp iAmp (mV) Amp (1st) (%) Site1 Site2 Delta-0 (ms) Dist (cm) Fabricio (m/s) Norm Fabricio (m/s) Left Median Motor (Abd Poll Brev) Wrist ? 3.7 <3.9 12.0 >4.5 14.5 100.0 Elbow Wrist 4.3 22.5 52 >45 Elbow ? 8.0 10.4 12.2 86.7 Left Ulnar Motor (Abd Dig Minimi) Wrist ? 3.1 <3.0 6.0 >5 6.8 100.0 B Elbow Wrist 3.5 21.5 61 >45 B Elbow ? 6.6 5.6 6.3 93.3 A Elbow B Elbow 3.5 10.0 29 >45 A Elbow ? 10.1 2.4 2.9 40.0 EMG ?Side Muscle Nerve Root Ins Act Fibs Psw Amp Dur Poly Recrt Int Pat Comment Left 1stDorInt Ulnar C8-T1 Incr 1+ 1+ Nml Nml 0 Reduced Complete Left Biceps Musculocut C5-6 Nml Nml Nml Nml Nml 0 Nml Complete Left Triceps Radial C6-7-8 Nml Nml Nml Nml Nml 0 Nml Complete Left Deltoid Axillary C5-6 Nml Nml Nml Nml Nml 0 Nml Complete Left FlexCarpiUln Ulnar C8,T1 Incr 1+ 1+ Nml Nml 0 Nml Complete FINDINGS: Left ulnar motor nerve showed slightly prolonged distal latency, drop in amplitude above the elbow and slow conduction velocity across the elbow. All other nerves tested were within normal. Concentric needle EMG was performed in selected muscles of the left upper extremity. Study revealed signs of electric abnormalities as shown in the table above. Left FCU showed increased insertional activity, PSWs and fibrillations. Left FDI showed increased insertional activity, PSWs and fibrillations, with reduced recruitment. IMPRESSION: 1. This is an abnormal study. 2. 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 3. There is no electrodiagnostic evidence for median neuropathy, brachial plexopathy, or cervical radiculopathy. Thank you for your kind referral. Beatrice Morfin MD, SEUN Board Certified, [place] [employer] and [employer] (ABPMR) Board Certified, [place] [employer] Electro[employer]ostic [employer] (ABEM) CODIN [id number] MTDD
== END 2023-12-16 13:14 | disposition home or self-care (01) ==
LOC: HO.NEURO 13:13
PROVIDERS: PCP Internal Medicine; Visit Provider Internal Medicine
DX: R20.0 Anesthesia of skin (principal); R20.2 Paresthesia of skin
CPT/HCPCS: 95886; 95909

== ENCOUNTER → 2023-12-16 13:17 | Outpatient (BNV) | payer OTHER, SELFPAY | PROVIDERS: PCP Internal Medicine; Visit Provider Physical Medicine & Rehabilitation | DX: G56.22 Lesion of ulnar nerve, left upper limb (principal) | CPT/HCPCS: 95886; 95909 ==

== ENCOUNTER 2024-01-18 15:27 | Outpatient (AMB) | payer OTHER, SELFPAY ==
[2024-01-18 15:28] VITALS: BP 132/80; PULSE 84; O2SAT 97; BMI 35.7
--- NOTE | 2024-01-18 15:28 | A.OFFPC_ITS ---
Vital Signs 01/18/24 15:28 Height 5 ft 7 in Weight 228 lb 4 oz BMI 35.7 BP 132/80 Blood Pressure Location Lt brachial Position Sitting Pulse 84 Pulse Source Pulse Oximeter Pulse Oximetry (%) 97 Oxygen Delivery Method Room Air Intake Visit Reasons: 4m follow up cardiac murmur, hyperlipidemia Change Number Operator Required: No Accompanied by: Self / Same As Patient Allergies No Known Allergies Allergy (Verified 01/18/24 16:02) Medication List - Last Reconciled 01/18/24 by Mumtaz Reyes MD allopurinol 100 mg PO DAILY colchicine 0.6 mg PO BID PRN 30 days hydroxyzine HCl 50 mg PO BEDTIME ibuprofen 600 mg PO TID PRN 30 days indomethacin 25 mg PO TID PRN lorazepam 1 mg PO TID PRN 30 days naloxone 4 mg/actuation (Narcan) 4 mg intranasal Q2M PRN pravastatin 40 mg PO BEDTIME tramadol 50 mg PO TID PRN 30 days Tobacco use date assessed: 01/18/24 Dental Screening Dental Screen Date: 01/18/24 Did you have a dental visit in the last 12 months?: No Did you have a dental problem in the last 6 months where you did not have access to dental care?: No Was dental information given to patient?: No HPI 4m follow up cardiac murmur, hyperlipidemia HPI Details Patient comes in today for his follow up visit States that he feels okay He denies any headaches or dizziness Denies any chest pains, no increased SOB No nausea/vomiting, no abdominal pain No change in bowel habits noted States that his low back pain and joint pains remain adequately controlled on his current Rx and his anxiety is also controlled on his current Rx He had his follow up labs done at [facility] a couple of months ago - to discuss his results [facility] Medical History Obesity (BMI 30-39.9) Anxiety Insomnia Gout Low back pain Essential hypertension Pure hypercholesterolemia Surgical History Hx of umbilical hernia repair (~11/06/18) Hx laparoscopic cholecystectomy (~11/06/18) Family History Father Hypertension Cardiovascular disease Mother Cancer Sister Asthma Social History Housing: House Alcohol intake: current Alcohol intake frequency: holidays/special occasions only Patient Tobacco Use Status: Never used Tobacco e-Cigarette/Vaping Use: Never Used Second Hand Smoke Exposure: Yes service: No Current occupational status: disabled Cognitive needs: No Hearing needs: No Vision needs: No Questionnaire PHQ-9 Over the last 2 weeks, how often have you been bothered by any of the following problems? 1. Little interest or pleasure in doing things: not at all 2. Feeling down, depressed, or hopeless: not at all 3. Trouble falling or staying asleep, or sleeping too much: not at all 4. Feeling tired or having little energy: not at all 5. Poor appetite or overeating: not at all 6. Feeling bad about yourself - or that you are a failure or have let yourself or your family down: not at all 7. Trouble concentrating on things, such as reading the newspaper or watching television: not at all 8. Moving or speaking so slowly that other people could have noticed. Or the opposite - being so fidgety or restless that you have been moving around a lot more than usual: not at all 9. Thoughts that you would be better off or of hurting yourself in some way: not at all Total score: 0 Depression Screening Interpretation: Negative Depression Screening Done: Yes 49857 - PHQ-9 Billing: Yes Source: Developed by Drs. Maikel Xie, Nurys Benavides, Claudy Sawyer and colleagues, with an educational sawyer from [employer]. Thrive Questionnaire Date Thrive assessed: 01/18/24 I am a: Patient What is your living situation today?: I have a steady place to live Within the past 12 months, did the food you bought not last and you didn't have the money to get more?: Never true Within the past 12 months, did you worry whether your food would run out before you got money to buy more?: Never true Do you have trouble paying for medicines?: No Do you have trouble getting transportation to medical appointments?: No Do you have trouble paying your heating and electricity bill?: No Do you have trouble taking care of your child, family member or friend?: No Do you have trouble with day-to-day activities such as bathing, preparing meals, shopping, managing finances, etc.?: No Are you currently unemployed and looking for a job?: No Are you interested in more education?: No Please select the resources that you would like help with: None Currently or been in a relationship where the following occur: No concerns reported THRIVE Score: 0 AUDIT C Alcohol Use Questionnaire (AUDIT-C) 1. How often do you have a drink containing alcohol?: Monthly or less 2. How many drinks containing alcohol do you have on a typical day when you are drinking?: 1 or 2 3. How often do you have six or more drinks on one occasion?: Never Total Score: 1 Score Reviewed/Action Taken: Yes CIERA-7 AMB Questionnaire CIERA-7 Date CIERA - 7 assessed: 01/18/24 Feeling nervous, anxious, or on edge: 0 = Not at all Not being able to stop or control worryin = Not at all Worrying too much about different things: 0 = Not at all Trouble relaxin = Not at all Being so restless that it is hard to sit still: 0 = Not at all Becoming easily annoyed or irritable: 0 = Not at all Feeling afraid as if something awful might happen: 0 = Not at all Total CIERA-7 score (0-4 normal; 5-9 mild; 10-14 moderate; 15-21 severe): 0 Source: Developed by Drs. Maikel Xie, Nurys Benavides, Claudy Sawyer and colleagues, with an educational sawyer from [employer]. Review of Systems Const Denies chills, Denies fatigue, Denies fever(s) and Denies headache(s) ENT Denies dysphagia, Denies dizziness, Denies otalgia, Denies headache(s), Reports neck pain, Denies odynophagia and Denies sore throat Card Denies chest pain, Denies palpitations and Denies dyspnea Resp Denies cough, Denies dyspnea and Denies wheezing GI Denies abdominal pain, Denies constipation, Denies dysphagia, Denies heartburn, Denies diarrhea, Denies nausea, Denies odynophagia and Denies vomiting Denies difficulty urinating, Denies dysuria and Denies urinary frequency Musc Reports back pain (recurrent), Reports arthralgias (over the medial side of the left elbow and left wrist - see HPI), Denies joint swelling, Reports neck pain and Reports numbness (of the left 4th and 5th fingers - see HPI) Skin/Breast Denies rash Neuro Denies dizziness, Denies headache(s) and Reports numbness (of the left 4th and 5th fingers - see HPI) Psych Reports anxiety Endo Denies fatigue and Denies palpitations Aller/Immun Denies wheezing Physical exam (Primary Care) Vital Signs: Last Vital Signs Pulse 84 01/18/24 15:28 BP 132/80 01/18/24 15:28 Pulse Ox 97 01/18/24 15:28 Oxygen Delivery Method Room Air 01/18/24 15:28 BMI result Body Mass Index 35.7 Tobacco/Smoking Status: Tobacco use Status Tobacco use date assessed 01/18/24 01/18/24 15:32 Patient Tobacco Use Status Never used Tobacco 01/18/24 15:32 e-Cigarette/Vaping Use Never Used 01/18/24 15:32 PHQ-9: PHQ-9 Score PHQ-9: Total score 0 01/23/24 22:26 Depression Screening Interpretation: Negative Thrive Assessment: Date of Thrive Assessment Date Thrive assessed 01/18/24 01/18/24 15:32 Currently or been in a relationship where the following occur: No concerns reported Const General: no acute distress and alert HENMT Ears: TM's normal bilaterally and EAC's normal Throat: Yes posterior oropharynx normal and Yes tonsils normal Neck Neck: Yes no lymphadenopathy and Yes supple Thyroid: Thyroid normal and no masses Resp Auscultation: clear to auscultation bilaterally, no rales and no wheezes Cardio Rate: regular rate Rhythm: regular rhythm Heart sounds: no murmurs GI Palpation (GI): Soft to palpation and nontender Auscultation: normal bowel sounds General: Yes no CVA tenderness Back/Spine/Pelvis Back: no CVA tenderness Cervical Spine: Cervical spine tenderness Thoracic/Lumbar Spine: lumbar spinal tenderness Skin Rashes: no rashes Neuro Cognition (Neuro): normal cognition Extrem Other: (+) some weakness on flexion of the left 4th and 5th finger noted General: Yes no clubbing, cyanosis or edema Left upper extremity: elbow/forearm Details: tenderness Location: of the medial epicondyle; no swelling and wrist ((+) mild tenderness over the ulnar side of the L wrist on exam) Office Procedures Flu Questionnaire Does the patient have a severe egg allergy?: No Immunizations Fluarix Triv [id number] (PF) 45 mcg (15 mcg x 3)/0.5 mL IM syringe Performing Provider: Mumtaz Reyes MD [place] [facility] [place] [facility] Documented (not given) by: BECKY Horton on 01/18/24 15:42 Reason Not Given: Patient Refused Coding Level of Care Code Est Pt Level 4 (50003) Diagnoses Pure hypercholesterolemia E78.00 Essential hypertension I10 Idiopathic gout, unspecified chronicity, unspecified site M10.00 Gout site: unspecified site Gout etiology: idiopathic Chronicity: unspecified Midline low back pain without sciatica, unspecified chronicity M54.5 Chronicity: unspecified Back pain laterality: midline Sciatica presence: without sciatica Ulnar neuropathy of left upper extremity G56.22 Benign prostatic hyperplasia (BPH) with urinary urgency N40.1; R39.15 Insomnia, unspecified type G47.00 Insomnia type: unspecified Anxiety F41.9 Obesity (BMI 30-39.9) E66.9 Assessment & Plan Assessment & Plan (1) Pure hypercholesterolemia: Code(s): E78.00 - Pure hypercholesterolemia, unspecified Category: Medical Plan: Results of his labs done a couple of months ago reviewed and discussed with patient - he is advised that his cholesterol levels are elevated and higher than previous Reinforced low cholesterol diet Will switch him out from his Pravastatin 40 mg QD to Atorvastatin 40 mg QD Will recheck his labs and fasting lipids in 4 months for follow up (2) Essential hypertension: Code(s): I10 - Essential (primary) hypertension Category: Medical Plan: Reinforced low-sodium diet -? goal is systolic BP of at least 130 mm or less He has not yet required any antihypertensives for his blood pressure so far and it appears that his previous high blood pressure readings may be situational or due to other causes and not from actual hypertension (3) Gout: Code(s): M10.9 - Gout, unspecified Category: Medical Qualifiers: Gout site: unspecified site Gout etiology: idiopathic Chronicity: unspecified Qualified Code(s): M10.00 - Idiopathic gout, unspecified site Plan: Reinforced low purine diet; his serum uric acid was elevated at 8.4 back in June 2021 but appears to have improved to 6.9 when last checked on 06/29/2023 His gout has been controlled adequately with diet modification alone until he had a gout flare up early last year (after no flare ups in over a year) We tried starting him on Colchicine 0.6 mg BID but insurance would not cover the Rx and he was instead started on Allopurinol 100 mg QD, which he is still on at present (4) Low back pain: Code(s): M54.5 - Low back pain Category: Medical Qualifiers: Chronicity: unspecified Back pain laterality: midline Sciatica presence: without sciatica Qualified Code(s): M54.5 - Low back pain Plan: Reinforced activity and weight lifting restrictions Continue Tramadol 50 mg 2 to 3 times a day as needed and Ibuprofen 600 mg TID with food PRN (Rx refilled) Lumbar spine and cervical spine x-rays done a couple of years ago came back normal Will consider referral to pain management for further evaluation if his low back pain and neck pain continue to persist or worsen (5) Ulnar neuropathy of left upper extremity: Code(s): G56.22 - Lesion of ulnar nerve, left upper limb Category: Medical Plan: EMG and NCV done last month revealed (+) electrodiagnostic evidence for left acute/subacute ulnar neuropathy at the elbow There is no electrodiagnostic evidence for median neuropathy, brachial plexopathy, or cervical radiculopathy. (6) Benign prostatic hyperplasia (BPH) with urinary urgency: Code(s): N40.1 - Benign prostatic hyperplasia with lower urinary tract symptoms; R39.15 - Urgency of urination Category: Medical Plan: Follow up with urology as scheduled (7) Insomnia: Code(s): G47.00 - Insomnia, unspecified Category: Medical Qualifiers: Insomnia type: unspecified Qualified Code(s): G47.00 - Insomnia, unspecified Plan: Sleep hygiene reinforced Continue Hydroxyzine 50 mg once a day at bedtime as needed (8) Anxiety: Code(s): F41.9 - Anxiety disorder, unspecified Category: Medical Plan: Continue Lorazepam 1 mg to 3 times a day as needed (9) Obesity (BMI 30-39.9): Code(s): E66.9 - Obesity, unspecified Category: Medical Plan: Reinforced diet/exercise as tolerated/lose weight Plan Follow up in 4 months Orders: Orders Influenza [id number] Immunization 01/18/24 Z23 - Encounter for immunization Comprehensive [place]. Panel Fast 4 Months E78.00 - Pure hypercholesterolemia, unspecified Lipid Panel 4 Months E78.00 - Pure hypercholesterolemia, unspecified Vitamin D 25-OH Total 4 Months E55.9 - Vitamin D deficiency, unspecified Complete Blood Count Auto Diff 4 Months D64.9 - Anemia, unspecified TSH reflex Free T4 4 Months E78.00 - Pure hypercholesterolemia, unspecified UA CC w/rflx Micro + Cult 4 Months R30.0 - Dysuria Medications: New atorvastatin 40 mg PO BEDTIME 90 days 90 tabs 1RF atorvastatin 40 mg PO BEDTIME 90 days 90 tabs 1RF Refilled tramadol 50 mg PO TID 30 days PRN 90 tabs 0RF pain lorazepam 1 mg PO TID 30 days PRN 90 tabs 0RF anxiety Discontinued pravastatin Discontinued Reason: Doctor's Order 40 mg PO BEDTIME 90 tabs 0RF
== END 2024-01-18 16:25 | disposition home or self-care (01) ==
PROVIDERS: PCP Internal Medicine; Visit Provider Internal Medicine
DX: E78.00 Pure hypercholesterolemia, unspecified (principal); I10 Essential (primary) hypertension; M10.00 Idiopathic gout, unspecified site; M54.50 Low back pain, unspecified; G56.22 Lesion of ulnar nerve, left upper limb; N40.1 Benign prostatic hyperplasia with lower urinary tract symptoms; R39.15 Urgency of urination; G47.00 Insomnia, unspecified; F41.9 Anxiety disorder, unspecified; E66.9 Obesity, unspecified

== ENCOUNTER → 2024-01-18 15:27 | Outpatient (BNVA) | payer OTHER, SELFPAY | PROVIDERS: PCP Internal Medicine; Visit Provider Internal Medicine | DX: E78.00 Pure hypercholesterolemia, unspecified (principal); I10 Essential (primary) hypertension; M10.00 Idiopathic gout, unspecified site; M54.50 Low back pain, unspecified; G56.22 Lesion of ulnar nerve, left upper limb; N40.1 Benign prostatic hyperplasia with lower urinary tract symptoms; R39.15 Urgency of urination; F41.9 Anxiety disorder, unspecified; E66.9 Obesity, unspecified; Z68.35 Body mass index [BMI] 35.0-35.9, adult; Z79.899 Other long term (current) drug therapy | CPT/HCPCS: 90471; 96127; 99212 ==

== ENCOUNTER 2024-05-22 14:31 | Outpatient (REF) | payer OTHER, SELFPAY ==
[2024-05-22 14:46] LABS: MANUAL DIFF FLAG NO
[2024-05-22 14:57] LABS: Basophils Percent Auto 0.6 % (0-2); Eosinophils Absolute Auto 0.2 X10*3/uL (0.0-0.4); Hematocrit 38.9 % (42.0-52.0); Hemoglobin 13.3 g/dl (14.0-18.0); Imm Gran Abs Auto 0.02 X10*3/uL (0.00-0.03); Imm Gran Pct Auto 0.4 % (0.0-0.4); Lymphocytes Absolute Auto 1.7 X10*3/uL (1.2-4.9); Lymphocytes Percent Auto 31.4 % (20-40); Mean Corpuscular HGB Conc 34.2 g/dl (31.0-36.0); Mean Corpuscular Hemoglobin 27.6 pg (27.0-33.0); Mean Corpuscular Volume 80.7 fL (80.0-98.0); Monocytes Absolute Auto 0.5 X10*3/uL (0.1-1.2); Monocytes Percent Auto 9.7 % (2-11); Neutrophils Absolute Auto 2.9 x10*3/uL (2.0-8.3); Neutrophils Percent Auto 54.9 % (45-73); Platelet Count 242 X10*3/uL (160-400); Red Blood Count 4.82 X10*6/uL (4.60-5.80); Red Cell Distribution Width 13.1 % (11.0-16.0); White Blood Count 5.3 X10*3/uL (4.8-10.8)
[2024-05-22 15:03] LABS: Appearance Urine Clear; Color Urine Yellow; Glucose Urine UA Negative (Negative); Leukocyte Esterase Urine Negative (Negative); Nitrite Urine Negative (Negative); PH 5.5 (5.0-9.0); Urine Blood Negative (Negative); Urine Ketones Negative (Negative); Urine Protein Negative (Neg-Trace)
[2024-05-22 17:08] LABS: Alanine Aminotransferase 29 U/L (0-40); Albumin Level 4.4 g/dL (3.5-5.0); Anion Gap 13 (12-20); Aspartate Amino Transferase 30 U/L (5-37); Bilirubin Total 0.4 mg/dL (0.0-1.0); Blood Urea Nitrogen 14 mg/dL (9-16); Calcium 9.7 mg/dL (8.4-10.2); Carbon Dioxide 27 mmol/L (22-29); Chloride 107 mmol/L (96-108); Cholesterol 214 mg/dL (<200); Estimated Glomerular Filt Rate > 60; Glucose Fasting 85 mg/dL (60-99); HDL Cholesterol 44 mg/dL (>40); LDL Cholesterol Calculated 139 mg/dL (<100); Potassium 3.8 mmol/L (3.3-5.1); Sodium 143 mmol/L (135-145); Total Protein 8.2 g/dL (6.5-8.0); Triglycerides 157 mg/dL (<150)
[2024-05-22 17:10] LABS: Vitamin D 25-OH Total 32.4 ng/mL (>30)
[2024-05-22 17:12] LABS: Alkaline Phosphatase 90 U/L (39-117)
[2024-05-22 20:47] LABS: Folate 15.8 ng/mL (> or = 4.0); Vitamin B12 606 pg/mL (200-900)
== END 2024-05-22 14:32 | disposition home or self-care (01) ==
LOC: HO.LAB 14:31
PROVIDERS: PCP Internal Medicine; Visit Provider Internal Medicine
DX: E78.00 Pure hypercholesterolemia, unspecified (principal); I10 Essential (primary) hypertension; M10.00 Idiopathic gout, unspecified site; M54.50 Low back pain, unspecified; G56.22 Lesion of ulnar nerve, left upper limb; N40.1 Benign prostatic hyperplasia with lower urinary tract symptoms; R39.15 Urgency of urination; F41.9 Anxiety disorder, unspecified; R30.0 Dysuria; D64.9 Anemia, unspecified; E55.9 Vitamin D deficiency, unspecified; E66.9 Obesity, unspecified; Z79.899 Other long term (current) drug therapy
CPT/HCPCS: 36415; 80053; 80061; 81003; 82306; 82607; 82746; 84443; 85025; 96127; 99212

== ENCOUNTER 2024-05-22 15:29 | Outpatient (AMB) | payer OTHER, SELFPAY ==
[2024-05-22 15:32] VITALS: BP 140/82; PULSE 94; O2SAT 97; BMI 37.8
--- NOTE | 2024-05-22 15:32 | MHC.PC.OV ---
Vital Signs 05/22/24 15:32 Height 5 ft 7 in Weight 241 lb 4 oz BMI 37.8 BP 140/82 H Blood Pressure Location Lt brachial Position Sitting Pulse 94 Pulse Source Pulse Oximeter Pulse Oximetry (%) 97 Oxygen Delivery Method Room Air Intake Visit Reasons: hyperlipidemia Cathode Washer Required: No Accompanied by: Self / Same As Patient Allergies No Known Allergies Allergy (Verified 05/22/24 16:01) Medication List - Last Reconciled 05/22/24 by Mumtaz Reyes MD allopurinol 100 mg PO DAILY atorvastatin 40 mg PO BEDTIME 90 days colchicine 0.6 mg PO BID PRN 30 days hydroxyzine HCl 50 mg PO BEDTIME ibuprofen 600 mg PO TID PRN 30 days indomethacin 25 mg PO TID PRN lorazepam 1 mg PO TID PRN 30 days naloxone 4 mg/actuation (Narcan) 4 mg intranasal Q2M PRN tramadol 50 mg PO TID PRN 30 days Tobacco use date assessed: 05/22/24 Dental Screening Dental Screen Date: 05/22/24 Did you have a dental visit in the last 12 months?: No Did you have a dental problem in the last 6 months where you did not have access to dental care?: No Was dental information given to patient?: No HPI hyperlipidemia HPI Details Patient comes in today for his follow up visit States that he feels okay but us surprised to find out he has gained a lot of weight since his last visit here States that he has cut out a lot of junk foods and feels that he has been eating a lot healthier than he ever did over the past few weeks and is wondering why he gained more weight instead of losing weight He denies any headaches or dizziness Denies any chest pains, no increased SOB No nausea/vomiting, no abdominal pain No change in bowel habits noted States that his low back pain and joint pains remain adequately controlled on his current Rx Relates that his anxiety is also well-controlled on his current medication Needs his Tramadol and Lorazepam Rx refilled today He had his follow up labs done just before he came in for his appointment today - his results are not yet available for review at this time [facility] Medical History Obesity (BMI 30-39.9) Anxiety Insomnia Gout Low back pain Essential hypertension Pure hypercholesterolemia Surgical History Hx of umbilical hernia repair (~11/06/18) Hx laparoscopic cholecystectomy (~11/06/18) Family History Father Hypertension Cardiovascular disease Mother Cancer Sister Asthma Social History Housing: House Alcohol intake: current Alcohol intake frequency: holidays/special occasions only Patient Tobacco Use Status: Never used Tobacco e-Cigarette/Vaping Use: Never Used Second Hand Smoke Exposure: Yes service: No Current occupational status: disabled Cognitive needs: No Hearing needs: No Vision needs: No Questionnaire PHQ-9 Over the last 2 weeks, how often have you been bothered by any of the following problems? 1. Little interest or pleasure in doing things: not at all 2. Feeling down, depressed, or hopeless: not at all 3. Trouble falling or staying asleep, or sleeping too much: not at all 4. Feeling tired or having little energy: not at all 5. Poor appetite or overeating: not at all 6. Feeling bad about yourself - or that you are a failure or have let yourself or your family down: not at all 7. Trouble concentrating on things, such as reading the newspaper or watching television: not at all 8. Moving or speaking so slowly that other people could have noticed. Or the opposite - being so fidgety or restless that you have been moving around a lot more than usual: not at all 9. Thoughts that you would be better off or of hurting yourself in some way: not at all Total score: 0 Depression Screening Interpretation: Negative Depression Screening Done: Yes 76918 - PHQ-9 Billing: Yes Source: Developed by Drs. Maikel Xie, Nurys Benavides, Claudy Sawyer and colleagues, with an educational sawyer from [employer]. Thrive Questionnaire Date Thrive assessed: 05/22/24 I am a: Patient What is your living situation today?: I have a steady place to live Within the past 12 months, did the food you bought not last and you didn't have the money to get more?: Never true Within the past 12 months, did you worry whether your food would run out before you got money to buy more?: Never true Do you have trouble paying for medicines?: No Do you have trouble getting transportation to medical appointments?: No Do you have trouble paying your heating and electricity bill?: No Do you have trouble taking care of your child, family member or friend?: No Do you have trouble with day-to-day activities such as bathing, preparing meals, shopping, managing finances, etc.?: No Are you currently unemployed and looking for a job?: No Are you interested in more education?: No Please select the resources that you would like help with: None Currently or been in a relationship where the following occur: No concerns reported THRIVE Score: 0 AUDIT C Alcohol Use Questionnaire (AUDIT-C) 1. How often do you have a drink containing alcohol?: Monthly or less 2. How many drinks containing alcohol do you have on a typical day when you are drinking?: 1 or 2 3. How often do you have six or more drinks on one occasion?: Never Total Score: 1 Score Reviewed/Action Taken: Yes CIERA-7 AMB Questionnaire CIERA-7 Date CIERA - 7 assessed: 05/22/24 Feeling nervous, anxious, or on edge: 0 = Not at all Not being able to stop or control worryin = Not at all Worrying too much about different things: 0 = Not at all Trouble relaxin = Not at all Being so restless that it is hard to sit still: 0 = Not at all Becoming easily annoyed or irritable: 0 = Not at all Feeling afraid as if something awful might happen: 0 = Not at all Total CIERA-7 score (0-4 normal; 5-9 mild; 10-14 moderate; 15-21 severe): 0 Source: Developed by Drs. Maikel Xie, Nurys Benavides, Claudy Sawyer and colleagues, with an educational sawyer from [employer]. Review of Systems Const Denies chills, Denies fatigue, Denies fever(s), Denies headache(s) and Reports weight gain ENT Denies dysphagia, Denies dizziness, Denies otalgia, Denies headache(s), Reports neck pain, Denies odynophagia and Denies sore throat Card Denies chest pain, Denies palpitations and Denies dyspnea Resp Denies chest congestion, Denies cough and Denies dyspnea GI Denies abdominal pain, Denies constipation, Denies dysphagia, Denies heartburn, Denies diarrhea, Denies nausea, Denies odynophagia and Denies vomiting Denies difficulty urinating, Denies dysuria and Denies urinary frequency Musc Reports back pain (recurrent), Reports arthralgias (over multiple joints ), Denies joint swelling and Reports neck pain Skin/Breast Denies rash Neuro Denies dizziness and Denies headache(s) Psych Reports anxiety Endo Denies fatigue and Denies palpitations Physical exam (Primary Care) Vital Signs: Last Vital Signs Pulse 94 05/22/24 15:32 BP 140/82 H 05/22/24 15:32 Pulse Ox 97 05/22/24 15:32 Oxygen Delivery Method Room Air 05/22/24 15:32 BMI result Body Mass Index 37.8 Tobacco/Smoking Status: Tobacco use Status Tobacco use date assessed 05/22/24 05/22/24 15:39 Patient Tobacco Use Status Never used Tobacco 05/22/24 15:39 e-Cigarette/Vaping Use Never Used 05/22/24 15:39 PHQ-9: PHQ-9 Score PHQ-9: Total score 0 05/22/24 15:39 Depression Screening Interpretation: Negative Thrive Assessment: Date of Thrive Assessment Date Thrive assessed 05/22/24 05/22/24 15:39 Currently or been in a relationship where the following occur: No concerns reported Const General: no acute distress and alert HENMT Ears: TM's normal bilaterally and EAC's normal Throat: Yes posterior oropharynx normal and Yes tonsils normal Neck Neck: Yes supple and No lymphadenopathy Thyroid: Thyroid normal and no masses Resp Auscultation: clear to auscultation bilaterally, no rales and no wheezes Cardio Rate: regular rate Rhythm: regular rhythm Heart sounds: no murmurs GI Palpation (GI): Soft to palpation and nontender Auscultation: normal bowel sounds General: Yes no CVA tenderness Back/Spine/Pelvis Back: no CVA tenderness Cervical Spine: Cervical spine tenderness Thoracic/Lumbar Spine: lumbar spinal tenderness Skin Rashes: no rashes Neuro Cognition (Neuro): normal cognition Extrem Other: (+) some weakness on flexion of the left 4th and 5th finger noted General: Yes no clubbing, cyanosis or edema Left upper extremity: elbow/forearm Details: tenderness Location: of the medial epicondyle; no swelling and wrist ((+) mild tenderness over the ulnar side of the L wrist on exam) Coding Level of Care Code Est Pt Level 4 (43409) Diagnoses Pure hypercholesterolemia E78.00 Essential hypertension I10 Idiopathic gout, unspecified chronicity, unspecified site M10.00 Gout site: unspecified site Gout etiology: idiopathic Chronicity: unspecified Midline low back pain without sciatica, unspecified chronicity M54.5 Chronicity: unspecified Back pain laterality: midline Sciatica presence: without sciatica Ulnar neuropathy of left upper extremity G56.22 Benign prostatic hyperplasia (BPH) with urinary urgency N40.1; R39.15 Insomnia, unspecified type G47.00 Insomnia type: unspecified Anxiety F41.9 Obesity (BMI 30-39.9) E66.9 Additional Codes PHQ-9 - 39705 - PHQ-9 Billing: Yes ([id number]) Assessment & Plan Assessment & Plan (1) Pure hypercholesterolemia: Code(s): E78.00 - Pure hypercholesterolemia, unspecified Category: Medical Plan: Patient reportedly had his follow up labs done just before coming into the office today - his results are not yet available for review at this time He is reminded that his cholesterol levels were still elevated and were higher than previous on his labs done back in May 2022 - he has not been able to get his labs rechecked since until today Reinforced low cholesterol diet He was switched out from his Pravastatin 40 mg QD to Atorvastatin 40 mg QD back in December 2023 Will follow up the results of his labs done earlier today Will recheck his labs and fasting lipids again in 4 months for follow up (2) Essential hypertension: Code(s): I10 - Essential (primary) hypertension Category: Medical Plan: Reinforced low-sodium diet -? goal is systolic BP of at least 130 mm or less He has not yet required any antihypertensives for his blood pressure so far but his blood pressure is again elevated today, likely in relation to his recent weight gain He is reminded to continue monitoring his blood pressure regularly (3) Gout: Code(s): M10.9 - Gout, unspecified Category: Medical Qualifiers: Gout site: unspecified site Gout etiology: idiopathic Chronicity: unspecified Qualified Code(s): M10.00 - Idiopathic gout, unspecified site Plan: Reinforced low purine diet; his serum uric acid was elevated at 8.4 back in June 2021 but appears to have improved to 6.9 when last checked on 06/29/2023 His gout has been controlled adequately with diet modification alone until he had a gout flare up early last year (after no flare ups in over a year) We tried starting him on Colchicine 0.6 mg BID but insurance would not cover the Rx and he was instead started on Allopurinol 100 mg QD, which he is still on at present (4) Low back pain: Code(s): M54.5 - Low back pain Category: Medical Qualifiers: Chronicity: unspecified Back pain laterality: midline Sciatica presence: without sciatica Qualified Code(s): M54.5 - Low back pain Plan: Reinforced activity and weight lifting restrictions Continue Tramadol 50 mg 2 to 3 times a day as needed and Ibuprofen 600 mg TID with food PRN (Rx refilled) Lumbar spine and cervical spine x-rays done a couple of years ago came back normal Will consider referral to pain management for further evaluation if his low back pain and neck pain continue to persist or worsen (5) Ulnar neuropathy of left upper extremity: Code(s): G56.22 - Lesion of ulnar nerve, left upper limb Category: Medical Plan: EMG and NCV done last month revealed (+) electrodiagnostic evidence for left acute/subacute ulnar neuropathy at the elbow There is no electrodiagnostic evidence for median neuropathy, brachial plexopathy, or cervical radiculopathy. (6) Benign prostatic hyperplasia (BPH) with urinary urgency: Code(s): N40.1 - Benign prostatic hyperplasia with lower urinary tract symptoms; R39.15 - Urgency of urination Category: Medical Plan: Follow up with urology as scheduled (7) Insomnia: Code(s): G47.00 - Insomnia, unspecified Category: Medical Qualifiers: Insomnia type: unspecified Qualified Code(s): G47.00 - Insomnia, unspecified Plan: Sleep hygiene reinforced Continue Hydroxyzine 50 mg once a day at bedtime as needed (8) Anxiety: Code(s): F41.9 - Anxiety disorder, unspecified Category: Medical Plan: Continue Lorazepam 1 mg to 3 times a day as needed (9) Obesity (BMI 30-39.9): Code(s): E66.9 - Obesity, unspecified Category: Medical Plan: Reinforced diet/exercise as tolerated/lose weight - he has gained almost 30 pounds in the past 6 months Patient admits that he has not really been doing much in terms of physical activity States that he used to walk a lot but has not done much walking this past winter because of the snow and ice around as well as the cold weather temperatures Plan Follow up as scheduled in July 2024 Orders: Orders Complete Blood Count Auto Diff 07/29/24 D64.9 - Anemia, unspecified UA CC w/rflx Micro + Cult 07/29/24 R30.0 - Dysuria Comprehensive [place]. Panel Fast 07/29/24 E78.00 - Pure hypercholesterolemia, unspecified Lipid Panel 07/29/24 E78.00 - Pure hypercholesterolemia, unspecified Vitamin D 25-OH Total 07/29/24 E55.9 - Vitamin D deficiency, unspecified Medications: Refilled tramadol 50 mg PO TID 30 days PRN 90 tabs 0RF pain lorazepam 1 mg PO TID 30 days PRN 90 tabs 0RF anxiety
== END 2024-05-22 16:12 | disposition home or self-care (01) ==
PROVIDERS: PCP Internal Medicine; Visit Provider Internal Medicine
DX: E78.00 Pure hypercholesterolemia, unspecified (principal); I10 Essential (primary) hypertension; E66.9 Obesity, unspecified; Z68.37 Body mass index [BMI] 37.0-37.9, adult; M10.00 Idiopathic gout, unspecified site; M54.50 Low back pain, unspecified; G56.22 Lesion of ulnar nerve, left upper limb; N40.1 Benign prostatic hyperplasia with lower urinary tract symptoms; R39.15 Urgency of urination; G47.00 Insomnia, unspecified; F41.9 Anxiety disorder, unspecified

== ENCOUNTER 2025-01-08 11:20 | Outpatient (REF) | payer OTHER, SELFPAY ==
[2025-01-08 11:34] LABS: MANUAL DIFF FLAG NO
[2025-01-08 11:56] LABS: Hematocrit 40.3 % (42.0-52.0); Hemoglobin 13.3 g/dl (14.0-18.0); Imm Gran Abs Auto 0.01 X10*3/uL (0.00-0.03); Imm Gran Pct Auto 0.2 % (0.0-0.4); Lymphocytes Absolute Auto 1.5 X10*3/uL (1.2-4.9); Mean Corpuscular HGB Conc 33.0 g/dl (31.0-36.0); Mean Corpuscular Hemoglobin 27.3 pg (27.0-33.0); Mean Corpuscular Volume 82.8 fL (80.0-98.0); NRBC Abs Auto 0.000 X10*3/uL (0.0-0.012); NRBC Pct Auto 0.0 /100WBC (0.0-0.2); Platelet Count 216 X10*3/uL (160-400); Red Blood Count 4.87 X10*6/uL (4.60-5.80); White Blood Count 4.7 X10*3/uL (4.8-10.8)
[2025-01-08 12:25] LABS: Alanine Aminotransferase 54 U/L (0-40); Albumin Level 4.5 g/dL (3.5-5.0); Alkaline Phosphatase 89 U/L (39-117); Anion Gap 12 (12-20); Aspartate Amino Transferase 40 U/L (5-37); Blood Urea Nitrogen 14 mg/dL (9-16); Calcium 9.4 mg/dL (8.4-10.2); Carbon Dioxide 25 mmol/L (22-29); Chloride 108 mmol/L (96-108); Cholesterol 314 mg/dL (<200); Estimated Glomerular Filt Rate > 60; HDL Cholesterol 43 mg/dL (>40); Potassium 5.2 mmol/L (3.3-5.1); Sodium 140 mmol/L (135-145); Total Protein 7.6 g/dL (6.5-8.0); Triglycerides 180 mg/dL (<150)
== END 2025-01-08 11:21 | disposition home or self-care (01) ==
LOC: HO.LAB 11:20
PROVIDERS: PCP Internal Medicine; Visit Provider Internal Medicine
DX: D64.9 Anemia, unspecified (principal); E78.00 Pure hypercholesterolemia, unspecified; E55.9 Vitamin D deficiency, unspecified
CPT/HCPCS: 36415; 80053; 80061; 82306; 84443; 85025

== ENCOUNTER 2025-01-11 11:20 | Outpatient (REF) | payer OTHER, SELFPAY ==
[2025-01-11 14:07] LABS: Appearance Urine Clear; Glucose Urine UA Negative (Negative); PH 6.5 (5.0-9.0); Specific Gravity - Urine 1.025 (1.005-1.025)
== END 2025-01-11 11:21 | disposition home or self-care (01) ==
LOC: HO.LNP 11:20
PROVIDERS: PCP Internal Medicine; Visit Provider Internal Medicine
DX: R30.0 Dysuria (principal); E78.00 Pure hypercholesterolemia, unspecified; I10 Essential (primary) hypertension; M10.00 Idiopathic gout, unspecified site; R79.89 Other specified abnormal findings of blood chemistry; R73.01 Impaired fasting glucose; E55.9 Vitamin D deficiency, unspecified; M54.50 Low back pain, unspecified; N40.1 Benign prostatic hyperplasia with lower urinary tract symptoms; R39.15 Urgency of urination; G47.00 Insomnia, unspecified; F41.9 Anxiety disorder, unspecified; E66.01 Morbid (severe) obesity due to excess calories; Z68.41 Body mass index [BMI] 40.0-44.9, adult; Z79.891 Long term (current) use of opiate analgesic; Z79.899 Other long term (current) drug therapy
CPT/HCPCS: 81003; 96127; 99212

== ENCOUNTER 2025-01-11 11:20 | Outpatient (AMB) | payer OTHER, SELFPAY ==
--- NOTE | 2025-01-11 11:27 | MHC.PC.OV ---
Vital Signs 01/11/25 11:28 Height 5 ft 7 in Weight 256 lb 4 oz BMI 40.1 BP 136/90 H Blood Pressure Location Lt brachial Position Sitting Pulse 70 Pulse Source Pulse Oximeter Pulse Oximetry (%) 97 Oxygen Delivery Method Room Air Intake Visit Reasons: 4 month F/U Educational Manager Required: No Accompanied by: Self / Same As Patient Allergies No Known Allergies Allergy (Verified 01/11/25 12:03) Medication List - Last Reconciled 01/11/25 by Mumtaz Reyes MD allopurinol 100 mg PO DAILY atorvastatin 40 mg PO BEDTIME 90 days colchicine 0.6 mg PO BID PRN 30 days hydroxyzine HCl 50 mg PO BEDTIME ibuprofen 600 mg PO TID PRN 30 days indomethacin 25 mg PO TID PRN lorazepam 1 mg PO TID PRN 30 days naloxone 4 mg/actuation (Narcan) 4 mg intranasal Q2M PRN tramadol 50 mg PO TID PRN 30 days Tobacco use date assessed: 01/11/25 Dental Screening Dental Screen Date: 01/11/25 Did you have a dental visit in the last 12 months?: No Did you have a dental problem in the last 6 months where you did not have access to dental care?: No Was dental information given to patient?: Patient has dentist HPI 4 month F/U HPI Details Patient comes in today for his follow up visit States that he feels okay He denies any headaches or dizziness Denies any chest pains, no increased SOB No nausea/vomiting, no abdominal pain No change in bowel habits noted States that his low back pain and joint pains and his anxiety all remain adequately controlled on his current Rx He is again surprised that he has gained more weight since his last visit a few months ago - he has gained about 28 pounds already so far since last year Patient feels that he has cut out junk foods from his diet and feels that he has been eating a lot healthier than he ever lately so he is at a loss as to why he has been gaining weight Needs his Atorvastatin Rx refilled today He had his follow up labs done a few days ago - to discuss his results [facility] Medical History (Updated 01/14/25 @ 00:20 by Mumtaz Reyes MD) Vitamin D deficiency Morbid obesity with BMI of 40.0-44.9, adult Obesity (BMI 30-39.9) Anxiety Insomnia Gout Low back pain Essential hypertension Pure hypercholesterolemia Surgical History Hx of umbilical hernia repair (~11/06/18) Hx laparoscopic cholecystectomy (~11/06/18) Family History Father Hypertension Cardiovascular disease Mother Cancer Sister Asthma Social History Housing: House Alcohol intake: current Alcohol intake frequency: holidays/special occasions only Patient Tobacco Use Status: Never used Tobacco e-Cigarette/Vaping Use: Never Used Second Hand Smoke Exposure: Yes service: No Current occupational status: disabled Cognitive needs: No Hearing needs: No Vision needs: No Questionnaire PHQ-9 Over the last 2 weeks, how often have you been bothered by any of the following problems? 1. Little interest or pleasure in doing things: nearly every day 2. Feeling down, depressed, or hopeless: more than half the days 3. Trouble falling or staying asleep, or sleeping too much: nearly every day 4. Feeling tired or having little energy: nearly every day 5. Poor appetite or overeating: nearly every day 6. Feeling bad about yourself - or that you are a failure or have let yourself or your family down: several days 7. Trouble concentrating on things, such as reading the newspaper or watching television: several days 8. Moving or speaking so slowly that other people could have noticed. Or the opposite - being so fidgety or restless that you have been moving around a lot more than usual: more than half the days 9. Thoughts that you would be better off or of hurting yourself in some way: not at all Total score: 18 Depression Screening Interpretation: Positive Depression Screening Follow-up: Follow-up Visit Requested Depression Screening Done: Yes 68752 - PHQ-9 Billing: Yes Source: Developed by Drs. Maikel Xie, Nurys Benavides, Claudy Sawyer and colleagues, with an educational sawyer from [employer]. Thrive Questionnaire Date Thrive assessed: 01/11/25 I am a: Patient What is your living situation today?: I choose not to answer this question Within the past 12 months, did the food you bought not last and you didn't have the money to get more?: Sometimes True Within the past 12 months, did you worry whether your food would run out before you got money to buy more?: Sometimes True Do you have trouble paying for medicines?: No Do you have trouble getting transportation to medical appointments?: Yes Do you have trouble paying your heating and electricity bill?: I choose not to answer this question Do you have trouble taking care of your child, family member or friend?: No Do you have trouble with day-to-day activities such as bathing, preparing meals, shopping, managing finances, etc.?: I choose not to answer this question Are you currently unemployed and looking for a job?: No Are you interested in more education?: I choose not to answer this question Please select the resources that you would like help with: Transportation Currently or been in a relationship where the following occur: No concerns reported THRIVE Score: 3 AUDIT C Alcohol Use Questionnaire (AUDIT-C) 1. How often do you have a drink containing alcohol?: Monthly or less 2. How many drinks containing alcohol do you have on a typical day when you are drinking?: 1 or 2 3. How often do you have six or more drinks on one occasion?: Never Total Score: 1 Score Reviewed/Action Taken: Yes CIERA-7 AMB Questionnaire CIERA-7 Date CIERA - 7 assessed: 05/22/24 Source: Developed by Drs. Maikel Xie, Nurys Benavides, Claudy Sawyer and colleagues, with an educational sawyer from [employer]. Review of Systems Const Denies chills, Reports fatigue, Denies fever(s), Denies headache(s) and Reports weight gain ENT Denies dysphagia, Denies dizziness, Denies otalgia, Denies headache(s), Reports neck pain, Denies odynophagia and Denies sore throat Card Denies chest pain, Denies palpitations and Denies dyspnea Resp Denies chest congestion, Denies cough and Denies dyspnea GI Denies abdominal pain, Denies constipation, Denies dysphagia, Denies heartburn, Denies diarrhea, Denies nausea, Denies odynophagia and Denies vomiting Denies difficulty urinating, Denies dysuria and Denies urinary frequency Musc Reports back pain (recurrent), Reports arthralgias (over multiple joints ), Denies joint swelling and Reports neck pain Skin/Breast Denies rash Neuro Denies dizziness and Denies headache(s) Psych Reports anxiety Endo Reports fatigue and Denies palpitations Physical exam (Primary Care) Vital Signs: Last Vital Signs Pulse 70 01/11/25 11:28 BP 136/90 H 01/11/25 11:28 Pulse Ox 97 01/11/25 11:28 Oxygen Delivery Method Room Air 01/11/25 11:28 BMI result Body Mass Index 40.1 Tobacco/Smoking Status: Tobacco use Status Tobacco use date assessed 01/11/25 01/11/25 11:33 Patient Tobacco Use Status Never used Tobacco 01/11/25 11:33 e-Cigarette/Vaping Use Never Used 01/11/25 11:33 PHQ-9: PHQ-9 Score PHQ-9: Total score 18 01/14/25 00:01 Depression Screening Interpretation: Positive Depression Screening Follow-up: Follow-up Visit Requested Thrive Assessment: Date of Thrive Assessment Date Thrive assessed 01/11/25 01/14/25 00:01 Currently or been in a relationship where the following occur: No concerns reported Const General: no acute distress and alert HENMT Ears: TM's normal bilaterally and EAC's normal Throat: Yes posterior oropharynx normal and Yes tonsils normal Neck Neck: Yes supple and No lymphadenopathy Thyroid: Thyroid normal and no masses Resp Auscultation: clear to auscultation bilaterally, no rales and no wheezes Cardio Rate: regular rate Rhythm: regular rhythm Heart sounds: no murmurs GI Palpation (GI): Soft to palpation and nontender Auscultation: normal bowel sounds General: Yes no CVA tenderness Back/Spine/Pelvis Back: no CVA tenderness Cervical Spine: Cervical spine tenderness Thoracic/Lumbar Spine: lumbar spinal tenderness Skin Rashes: no rashes Neuro Cognition (Neuro): normal cognition Extrem General: Yes no clubbing, cyanosis or edema Results Reviewed Results Reviewed: Laboratory Tests 05/22/24 05/22/24 01/08/25 14:40 14:45 11:33 WBC 5.3 4.7 L Hgb 13.3 L 13.3 L Hct 38.9 L 40.3 L Plt Count 242 216 Sodium 140 Potassium 5.2 H D Creatinine 1.12 Estimated GFR > 60 Fasting Glucose 102 H Calcium 9.4 AST 40 H ALT 54 H Triglycerides 180 H Cholesterol 314 H LDL Cholesterol, Calc 235 H HDL Cholesterol 43 25-OH Vitamin D Total 28.9 L TSH 2.26 Ur Specific [place] 1.020 Urine Protein Negative Urine Glucose (UA) Negative Urine Blood Negative Urine Nitrite Negative Ur Leukocyte Esterase Negative Coding Level of Care Code Est Pt Level 4 (24988) Diagnoses Pure hypercholesterolemia E78.00 Essential hypertension I10 Idiopathic gout, unspecified chronicity, unspecified site M10.00 Chronicity: unspecified Gout etiology: idiopathic Gout site: unspecified site Elevated LFTs R79.89 Impaired fasting glucose R73.01 Vitamin D deficiency E55.9 Midline low back pain without sciatica, unspecified chronicity M54.5 Back pain laterality: midline Chronicity: unspecified Sciatica presence: without sciatica Benign prostatic hyperplasia (BPH) with urinary urgency N40.1; R39.15 Insomnia, unspecified type G47.00 Insomnia type: unspecified Anxiety F41.9 Morbid obesity with BMI of 40.0-44.9, adult E66.01; Z68.41 Additional Codes PHQ-9 - 08547 - PHQ-9 Billing: Yes ([id number]) Assessment & Plan Assessment & Plan (1) Pure hypercholesterolemia: Code(s): E78.00 - Pure hypercholesterolemia, unspecified Category: Medical Plan: Results of his labs done a few days ago reviewed and discussed with patient He is advised that his cholesterol levels have gone up significantly since his last visit here in April 2024 by about 100 points His cholesterol levels also went up at his last visit from his numbers in 2022 Reinforced low cholesterol diet He is supposed to be on Atorvastatin 40 mg QD but I suspect that he has not been taking this even though patient states that he is Will start him back on Atorvastatin 40 mg QD (Rx refilled) Will recheck his labs and fasting lipids again in 4 months for follow up (2) Essential hypertension: Code(s): I10 - Essential (primary) hypertension Category: Medical Plan: Reinforced low-sodium diet -? goal is systolic BP of at least 130 mm or less He has not yet required any antihypertensives for his blood pressure so far but his blood pressure is again elevated today, likely in relation to his recent siginificant weight gain Have advised patient that if his blood pressure does not improve any further at his next appointment, then we will likely need to start him on some Rx for his blood pressure He is reminded to continue monitoring his blood pressure regularly (3) Gout: Code(s): M10.9 - Gout, unspecified Category: Medical Qualifiers: Chronicity: unspecified Gout etiology: idiopathic Gout site: unspecified site Qualified Code(s): M10.00 - Idiopathic gout, unspecified site Plan: Reinforced low purine diet; his serum uric acid was elevated at 8.4 back in June 2021 but appears to have improved to 6.9 when last checked on 06/29/2023 States that he's had no flare up of gout lately We tried starting him on Colchicine 0.6 mg BID but insurance would not cover the Rx and he was instead started on Allopurinol 100 mg QD, which he is still on at present (4) Elevated LFTs: Code(s): R79.89 - Other specified abnormal findings of blood chemistry Category: Medical Plan: His LFTs have gone up significantly from previous on his recent labs, likely in relation to his significant weight gain lately Will continue to monitor his LFTs regularly Will also check his liver fibrosis panel together with his other routine labs in 4 months for further evaluation (5) Impaired fasting glucose: Code(s): R73.01 - Impaired fasting glucose Category: Medical Plan: His FBS has gone up slighlty on his recent labs, most likely affected by his recent weight gain Will recheck in a few months for follow up; will also check his HgbA1c then (6) Vitamin D deficiency: Code(s): E55.9 - Vitamin D deficiency, unspecified Category: Medical Plan: Will start patient on Vitamin D3 2000 units QD (7) Low back pain: Code(s): M54.5 - Low back pain Category: Medical Qualifiers: Back pain laterality: midline Chronicity: unspecified Sciatica presence: without sciatica Qualified Code(s): M54.5 - Low back pain Plan: Reinforced activity and weight lifting restrictions Continue Tramadol 50 mg 2 to 3 times a day as needed and Ibuprofen 600 mg TID with food PRN Lumbar spine and cervical spine x-rays done a couple of years ago came back normal Will consider referral to pain management for further evaluation if his low back pain and neck pain continue to persist or worsen (8) Benign prostatic hyperplasia (BPH) with urinary urgency: Code(s): N40.1 - Benign prostatic hyperplasia with lower urinary tract symptoms; R39.15 - Urgency of urination Category: Medical Plan: Follow up with urology as scheduled (9) Insomnia: Code(s): G47.00 - Insomnia, unspecified Category: Medical Qualifiers: Insomnia type: unspecified Qualified Code(s): G47.00 - Insomnia, unspecified Plan: Sleep hygiene reinforced Continue Hydroxyzine 50 mg once a day at bedtime as needed (10) Anxiety: Code(s): F41.9 - Anxiety disorder, unspecified Category: Medical Plan: Continue Lorazepam 1 mg to 3 times a day as needed (11) Morbid obesity with BMI of 40.0-44.9, adult: Code(s): E66.01 - Morbid (severe) obesity due to excess calories; Z68.41 - Body mass index [BMI] 40.0-44.9, adult Category: Medical Plan: Reinforced diet/exercise as tolerated/lose weight - he has again gained almost 30 pounds in the past 6 months He has gained almost 45 pounds since October of last year (2023) Patient admits that he has not really been doing much in terms of physical activity although he feels that he has been eating healthier lately Plan Follow up in 4 months Orders: Orders Comprehensive [place]. Panel Fast 4 Months E78.00 - Pure hypercholesterolemia, unspecified Hemoglobin A1c 4 Months R73.01 - Impaired fasting glucose Uric Acid 4 Months M10.9 - Gout, unspecified Vitamin D 25-OH Total 4 Months E55.9 - Vitamin D deficiency, unspecified Lipid Panel 4 Months E78.00 - Pure hypercholesterolemia, unspecified Complete Blood Count Auto Diff 4 Months D64.9 - Anemia, unspecified TSH reflex Free T4 4 Months E78.00 - Pure hypercholesterolemia, unspecified UA CC w/rflx Micro + Cult 4 Months R30.0 - Dysuria Liver Fibrosis Pnl 4 Months R79.89 - Other specified abnormal findings of blood chemistry Medications: New cholecalciferol (vitamin D3) 50 mcg PO DAILY 90 caps 3RF 90 days E55.9 - Vitamin D deficiency, unspecified Refilled atorvastatin 40 mg PO BEDTIME 90 tabs 1RF 90 days
[2025-01-11 11:28] VITALS: BP 136/90; PULSE 70; O2SAT 97; BMI 40.1
== END 2025-01-11 12:14 | disposition home or self-care (01) ==
LOC: HO.HMCH 11:21
PROVIDERS: PCP Internal Medicine; Visit Provider Internal Medicine
DX: E78.00 Pure hypercholesterolemia, unspecified (principal); I10 Essential (primary) hypertension; M10.00 Idiopathic gout, unspecified site; R79.89 Other specified abnormal findings of blood chemistry; R73.01 Impaired fasting glucose; E55.9 Vitamin D deficiency, unspecified; M54.50 Low back pain, unspecified; N40.1 Benign prostatic hyperplasia with lower urinary tract symptoms; R39.15 Urgency of urination; G47.00 Insomnia, unspecified; E66.01 Morbid (severe) obesity due to excess calories; Z68.41 Body mass index [BMI] 40.0-44.9, adult; F41.9 Anxiety disorder, unspecified